=== PATIENT | female | born 1945 | race Caucasian/White ===

== ENCOUNTER 2017-12-05 10:09 | Outpatient (CLI) | payer MEDICARE ==
[2017-12-05 12:09] LABS: Hemoglobin 13.3 g/dL (12.0-16.0); Mean Corpuscular HGB CONC 33.8 g/dL (32.0-36.0); Mean Corpuscular Hemoglobin 30.8 pg (27.0-31.0); Platelet Count 183 thou/uL (130-400); RBC Distribution Width 12.3 % (11.5-14.5); Red Blood Cell (RBC) Count 4.31 mill/uL (4.20-5.40); White Blood Cell (WBC) Count 5.6 thou/uL (4.8-10.8)
[2017-12-05 12:37] LABS: ALT (SGPT) 12 U/L (8-55); AST (SGOT) 17 U/L (5-34); Albumin 4.7 g/dL (3.4-4.8); Alkaline Phosphatase 45 U/L (40-150); Anion Gap 17 mmol/L (10-20); BUN (Urea Nitrogen) 14 mg/dL (9.8-20.1); Bilirubin, Total 0.4 mg/dL (0.2-1.2); Calc. Creatinine Clearance 0 mL/min (70-130); Calcium 10.7 mg/dL (7.8-10.44); Carbon Dioxide 26 mmol/L (23-31); Chloride 105 mmol/L (98-107); Estimated GFR-MDRD 63; Globulin 2.5 g/dL (2.4-3.5); Glucose 95 mg/dL (83-110); Potassium 4.6 mmol/L (3.5-5.1); Protein, Total 7.2 g/dL (6.0-8.3); Sodium 143 mmol/L (136-145)
== END 2017-12-05 10:10 | disposition home or self-care (01) ==
LOC: LABBT 10:09
PROVIDERS: ATTEND Obstetrics & Gynecology
DX: Z01.812 Encounter for preprocedural laboratory examination (principal); R87.613 High grade squamous intraepithelial lesion on cytologic smear of cervix (HGSIL); Z88.5 Allergy status to narcotic agent
CPT/HCPCS: 80053; 85027; 86850; 86900; 86901

== ENCOUNTER 2017-12-06 09:26 | Day surgery (SDC) | payer MEDICARE ==
[2017-12-05 10:54] VITALS: BMI 20.3
[2017-12-06] MEDS ORDERED: Ferric Subsulfate 8 ML BOT ONE (10:10)
[2017-12-06] MEDS ORDERED: Lidocaine 1% w/Epinephrine 1:100K 30 ML VIAL ONE (10:10)
[2017-12-06] MEDS ORDERED: CEFAZOLIN/Water 2 GM/20 ML SYRINGE ONE (10:40)
[2017-12-06] MEDS ORDERED: Fentanyl 100 MCG/2 ML VIAL ONE ×2 (11:37→13:07)
--- NOTE | 2017-12-06 13:37 | OP ---
DATE OF PROCEDURE: 12/06/2017 PREOPERATIVE DIAGNOSES: High grade squamous intraepithelial lesion noted on Pap smear and insufficient in office colposcopy. POSTOPERATIVE DIAGNOSES: High grade squamous intraepithelial lesion noted on Pap smear and insufficient in office colposcopy. PROCEDURE: 1. Vaginal and cervical colposcopy with application of acetic acid and Lugol solution. 2. Cervical conization. 3. Biopsy of a cervical vaginal junction on the anterior and posterior aspect at 12 and 5 o'clock. SURGEON: Mago Webb D.O. COMPLICATIONS: None. ESTIMATED BLOOD LOSS: 25 mL. URINE OUTPUT: 50 mL. IV FLUIDS: 750 mL. ANESTHESIA: General. FINDINGS: Vaginal and cervical atrophy. Approximately 0.25-0.5 cm ulceration at the 5 o'clock position on the posterior aspect of the cervix, a lack of uptake at the 12 and 5 o'clock portion at the cervical vaginal junction, small amount of remaining cervical tissue from history of prior LEEP, cervical stenosis. INDICATIONS FOR THE PROCEDURE: Ms. Drea Louis is a 72-year-old female who presented for a referral due to a high grade squamous intraepithelial lesion Pap smear. The patient underwent in office colposcopy with cervical biopsies and ECC; however the ECC was insufficient due to cervical stenosis and cervical biopsies and one did not survive processing and the other was normal. Due to the inconsistency an exam under anesthesia was recommended with the plan for vaginal and cervical colposcopy with conization. PROCEDURE IN DETAIL: The patient was brought to the operating room and she was placed under general anesthesia. The patient was given Ancef preoperatively for prophylaxis. She was placed in dorsal lithotomy position using Jeff stirrups. An official timeout was performed. A single sided speculum was placed in the vagina. The vagina and cervix were coated with acetic acid and a colposcopy was performed. There was an ulcerated lesion on the posterior aspect of the cervicovaginal junction, which as noted above. Lugol solution was then placed along the cervix and the vagina and there was a lack of uptake at the 12 o'clock and 5 o'clock area at the cervical vaginal junction, not just on the ectocervix. The speculum was removed and a weighted speculum was placed in posterior aspect of the vagina, the anterior aspect of vagina was retracted using a right angle retractor. The cervix was grasped at the 12 o'clock position. The cervix was sequentially injected using lidocaine with epinephrine. Two stay sutures were placed at 3 and 9 o'clock position. The conization was performed in the circumferential fashion. It was a small cone specimen due to small amount of remaining cervical tissue due to prior LEEP and due to atrophy. This was marked at the 12 o'clock position. The cervical cone specimen did not completely incorporate the anterior and posterior areas with the lack of uptake of Lugol's due to their location of the cervical vaginal junction and past the portion of the ectocervix. Therefore, these areas were grasped using pickups and then biopsied superficially using Monreal scissors along the cervicovaginal junction. These were placed in a separate pathology container. The bed of the cone that was centrally located was cauterized using ball cautery. The areas where the other biopsies were performed were reapproximated using 2-0 chromic due to the near proximity of the bladder and then the posterior cul-de-sac. The area along the posterior portion was run using a 2-0 chromic as well just to achieve hemostasis. Monsel's was then placed along the side and hemostasis was achieved. The patient was extubated without difficulty. All counts were correct x2. There were no complications. MTDD
[2017-12-06] MEDS ORDERED: HYDROcodone/Acetaminophen 5/325 mg Tablet ONE (15:30)
[2017-12-06] MEDS ORDERED: PHENYLEPHRINE-NS 100 MCG/ML 10 ML SYRINGE ONE (18:02)
[2017-12-06] MEDS ORDERED: Lidocaine 1% PF 5 ML VIAL ONE (18:02)
[2017-12-06] MEDS ORDERED: Dexamethasone 20 MG/5 ML VIAL ONE (18:02)
[2017-12-06] MEDS ORDERED: Ondansetron HCl/PF 4 MG/2 ML Vial ONE (18:02)
[2017-12-06] MEDS ORDERED: PROPOFOL 200 MG/20 ML VIAL ONE (18:02)
[2017-12-06] MEDS ORDERED: Glycopyrrolate 0.2 MG/ML 5 ML SYRINGE ONE (18:02)
== END 2017-12-06 16:18 | disposition home or self-care (01) ==
LOC: SDC 09:26
PROVIDERS: ATTEND Obstetrics & Gynecology
PROC: 0UBC7ZX Excision of Cervix, Via Natural or Artificial Opening, Diagnostic (ICD-10-PCS; principal; 2017-12-06)
PROC: 0UBC8ZX Excision of Cervix, Via Natural or Artificial Opening Endoscopic, Diagnostic (ICD-10-PCS; 2017-12-06)
DX: N72 Inflammatory disease of cervix uteri (principal); N88.2 Stricture and stenosis of cervix uteri; E11.9 Type 2 diabetes mellitus without complications; I10 Essential (primary) hypertension; R87.613 High grade squamous intraepithelial lesion on cytologic smear of cervix (HGSIL); Z88.5 Allergy status to narcotic agent; Z79.84 Long term (current) use of oral hypoglycemic drugs; Z79.83 Long term (current) use of bisphosphonates; Z79.899 Other long term (current) drug therapy; Z87.891 Personal history of nicotine dependence
CPT/HCPCS: 88305; 88307; 96374; J1100; J2001; J2405; J2704; J3010

== ENCOUNTER 2018-01-16 10:10 | Outpatient (CLI) | payer MEDICARE | END 2018-01-16 10:11 | disposition home or self-care (01) | LOC: BICMAMMO 10:10 | PROVIDERS: ATTEND Family Medicine | DX: C50.411 Malignant neoplasm of upper-outer quadrant of right female breast (principal); R92.1 Mammographic calcification found on diagnostic imaging of breast | CPT/HCPCS: 77066; G0279 ==

== ENCOUNTER 2018-01-28 12:50 | Outpatient (CLI) | payer MEDICARE ==
--- NOTE | 2018-01-28 14:58 | ULT ---
ULTRASOUND WITH DOPPLER DUPLEX VENOUS LOWER EXTREMITY LEFT: HISTORY: 72-year-old female with left lower extremity pain. TECHNIQUE: Color flow Doppler, spectral waveform analysis of pulsed Doppler, and mejias-scale imaging with ugo stephanie and augmentation, were used to evaluate the left common femoral, femoral, popliteal, posterior t ibial, and superficial femoral, veins; and the proximal portions of the profunda femoral and greater saphenous, veins. FINDINGS: There is normal compressibility, demonstration of blood flow by color Doppler and pulsed Doppler, and response to augmentation, in all interrogated veins. IMPRESSION: Negative. No deep vein thrombosis in the left lower extremity. ever POS: PRERNA
== END 2018-01-28 12:51 | disposition home or self-care (01) ==
LOC: ULT 12:50
PROVIDERS: ATTEND Family Medicine
DX: R22.42 Localized swelling, mass and lump, left lower limb (principal)
CPT/HCPCS: 36415; 82553; 83036; 84484

== ENCOUNTER 2018-08-16 20:54 | Observation (INO) | payer MEDICARE ==
[2018-08-17] MEDS ORDERED: Acetaminophen 325 MG TAB PO PRN (01:19)
[2018-08-17 01:51] VITALS: BMI 19.5
[2018-08-17] MEDS ORDERED: Dextrose 5% in Water 1,000 ML IV PRN (09:15)
[2018-08-17] MEDS ORDERED: HumaLOG 300 UNITS/3 ML VIAL SC PRN (09:15)
[2018-08-17] MEDS ORDERED: Dextrose 50% Abboject 50 ML SYRINGE SLOW IVP PRN (09:15)
[2018-08-17 09:42] LABS: #Eosinphils 0.1 thou/uL (0.0-0.7); #Lymphocytes 1.3 thou/uL (1.20-3.40); #Monocytes 0.3 thou/uL (0.11-0.59); #Neutrophils 2.5 thou/uL (1.40-6.50); %Basophils 0.3 % (0.0-1.0); %Eosinophils 2.8 % (0.0-10.0); %Lymphocytes 29.7 % (21.0-51.0); %Neutrophils 60.2 % (42.0-75.0); Hemoglobin 11.3 g/dL (12.0-16.0); Mean Corpuscular HGB CONC 33.4 g/dL (32.0-36.0); Mean Corpuscular Hemoglobin 30.5 pg (27.0-31.0); Mean Corpuscular Volume 91.4 fL (78.0-98.0); Mean Platelet Volume 7.4 fL (7.4-10.4); Platelet Count 161 thou/uL (130-400); RBC Distribution Width 12.6 % (11.5-14.5); Red Blood Cell (RBC) Count 3.69 mill/uL (4.20-5.40); White Blood Cell (WBC) Count 4.2 thou/uL (4.8-10.8)
[2018-08-17 10:04] LABS: ALT (SGPT) 10 U/L (8-55); AST (SGOT) 11 U/L (5-34); Albumin 3.7 g/dL (3.4-4.8); Alkaline Phosphatase 31 U/L (40-150); Anion Gap 12 mmol/L (10-20); BUN (Urea Nitrogen) 19 mg/dL (9.8-20.1); Bilirubin, Total 0.5 mg/dL (0.2-1.2); Calc. Creatinine Clearance 36 mL/min (70-130); Calcium 9.2 mg/dL (7.8-10.44); Carbon Dioxide 25 mmol/L (23-31); Chloride 105 mmol/L (98-107); Estimated GFR-MDRD 51; Globulin 2.1 g/dL (2.4-3.5); Glucose 213 mg/dL (83-110); Potassium 4.3 mmol/L (3.5-5.1); Protein, Total 5.8 g/dL (6.0-8.3); Sodium 138 mmol/L (136-145)
--- NOTE | 2018-08-17 11:29 | MRI ---
NONCONTRAST MRI BRAIN: Date: 08/17/18 HISTORY: Left-sided weakness. Left facial sensation changes and left leg heaviness. COMPARISON: 10/30/13. FINDINGS: There are increased punctate and patchy areas of increased FLAIR and T2-weighted signal intensity see n within the periventricular and subcortical white matter, as well as involving the steffanie bilaterally, which are overall nonspecific but likely reflective of chronic small vessel ischemic changes, which have mildly progressed from the prior study in 2013. There is no evidence of an acute infarction. Sig nal abnormality in the right aspect of the brain stem on the T2-weighted images are most likely artif actual and secondary to pulsation artifact as normal signal intensity is demonstrated in this region on FLAIR and gradient echo sequences, as well as the ACD maps. The septum pellucidum and third ventricle are in the midline. There is mild cerebral and cerebellar v olume loss. The ventricular system is normal in size, shape, and position for the degree of sulcal at rophy. The left vertebral artery flow-void is dominant compared to the right vertebral artery flow-void. Lisa ropriate flow-voids are demonstrated at the base of the brain. There is absence of the belkofski lens on the right. Paranasal sinuses and skull base have a normal MRI appearance. IMPRESSION: 1. No acute intracranial abnormalities demonstrated. 2. Findings likely attributable to moderate chronic small vessel ischemic changes, which have mildly progressed from the prior exam in 2013. POS: PRERNA
--- NOTE | 2018-08-17 13:20 | HP ---
PRIMARY CARE PROVIDER: Argenis Infante MD CHIEF COMPLAINT: Chest pain and TIA symptoms. HISTORY OF PRESENT ILLNESS: The patient is a 73-year-old female, who reports that she started having midsternal chest pain that radiated and shortness of breath started several days ago. Reports Saturday, she went to the movies and started feeling weak. Reports that she had some numbness and tingling on her left side. Reports that her left leg felt really heavy. She reports that she had gone to [place] for evaluation. The patient had a CTA of the head in [place]. No CT evidence of acute intracranial process. Atherosclerotic vascular disease without high-grade stenosis, occlusion, or abscess. The patient had 3 troponins, which were undetectable. Based on symptoms, the patient was a transfer to [facility] and ultimately admitted to the observation unit for further management. Of note, she reports that she sees Dr. Li and has had a stress test in the last couple of months. On exam this morning, she did have some mild weakness, 4/5 strength decreased on the left leg. Otherwise, neuro exam was normal. PAST MEDICAL HISTORY: Includes diabetes type 2, GERD, hyperlipidemia, hypertension, and she has had a history of breast cancer. PAST SURGICAL HISTORY: Appendectomy, left heel spur, biopsy of the left breast, tubal ligation, skin cancers removed from her nose, lumpectomy right breast, and cataract surgery, right eye. PSYCHIATRIC HISTORY: None. SOCIAL HISTORY: Denies any alcohol or drugs. No smoking history. FAMILY HISTORY: Denies family history of any cardiac issues or strokes. REVIEW OF SYSTEMS: GENERAL: Denies chills or fever. EYES: Denies any eye changes, eye pain. ENT: Denies sore throat or rhinorrhea. CARDIOVASCULAR: Does report chest pain with radiation up to her neck. RESPIRATORY: Denies cough. Reports some mild shortness of breath during the chest pain that has since resolved. GASTROINTESTINAL: Denies any abdominal pain, nausea, vomiting, or constipation. MUSCULOSKELETAL: Reports left leg feels heavy. SKIN: No rashes. NEUROLOGIC: Denies confusion or dizziness. Does report some focal weakness on the left leg. Reports some sensory changes to the left. Decreased sensation. Denies speech changes. ENDOCRINE: Shows negative review of systems. PSYCH: Negative review of systems. All other systems reviewed and negative unless mentioned in HPI. PHYSICAL EXAMINATION: VITAL SIGNS: Temperature 97.5, pulse 63, respirations 18, pulse ox is 92% on room air, and blood pressure 114/55. CONSTITUTIONAL: The patient is alert and oriented to person, place, and time, is in no apparent distress. HEENT: Head is atraumatic and normocephalic. Eyes, pupils are equally round and reactive to light. Eyelids are normal to inspection. ENT; mouth exam is normal. Mucous membranes are moist. NECK: Normal range of motion. Trachea is midline. RESPIRATORY: Chest movement is symmetrical. Breath sounds are clear. CARDIOVASCULAR: Regular heart rate and rhythm. Heart sounds are normal. ABDOMEN: Nontender. Bowel sounds are heard. BACK: Normal range of motion. No CVA tenderness is noted. EXTREMITIES: Upper extremity, motor strength is normal. Sensation is intact. Radial pulses equal bilaterally. Lower extremity, inspection is normal. Range of motion is normal. Motor strength is 4/5 on the left. Sensation is decreased. Pedal pulses equal bilaterally. NEURO: Negative pronator drift and negative alternate drift. Normal [id number]. The patient is oriented to person, place, and time. Speech is normal. SKIN: Warm, dry, and normal color. PSYCH: Normal affect. LABORATORY DATA: EKG interpretation; normal sinus rhythm, beats per minute 60, ST segments normal, T-waves normal, and axis is normal. White blood cell count is 4.2, hemoglobin is 11.3, hematocrit 33.8, and platelet count is 161. Sodium is 138, potassium 4.3, chloride 105, gap is 12, BUN is 19, creatinine is 1.05, estimated GFR is 51, glucose is 213, and calcium 9.2. Liver enzymes are unremarkable. Troponin x2 are undetectable. ALLERGIES: TO CODEINE. HOME MEDICATIONS: Include; 1. Alendronate 35 mg 1 tablet p.o. q.7 days. 2. Vitamin D3 of 5000 units p.o. daily. 3. Lisinopril 20 mg q.a.m. 4. Lovastatin 10 mg p.o. daily. 5. Metformin 1000 mg p.o. b.i.d. 6. Pantoprazole 40 mg 1 tablet p.o. daily. 7. Tamoxifen 120 mg 1 tablet p.o. daily. 8. Coenzyme q.30 mg p.o. daily. 9. Multivitamin 1 capsule p.o. q.a.m. PLAN AND ASSESSMENT: 1. Cerebrovascular accident, rule out the patient has some residual left-sided weakness, sensation difference. We will obtain an MRI and echocardiogram. The patient already had a CTA of the neck and head, which was negative. We will ask the Stroke team to help evaluate PT/OT. 2. Chest pain. The patient sees Dr. Li as an outpatient. Reports that she has had a recent stress test with ongoing chest pain. We will ask Cardiology to consult. Troponins x2 were negative. No apparent EKG changes. 3. Hypertension. We will continue home medications. We will add p.r.n. medications if needed. 4. Diabetes. We will continue home medication. We will add p.r.n. sliding scale control as needed. We will check blood sugars before meals and at bedtime. 5. Hyperlipidemia. We will check lipids. Continue statin. 6. Gastrointestinal and deep venous thrombosis prophylaxis will be started. 7. Hospital course will be dependent on clinical findings. Job ID: [id number]
--- NOTE | 2018-08-17 13:55 | CON ---
DATE OF CONSULTATION: 08/17/2018 INDICATION FOR CONSULTATION: A 73-year-old female with chest pain. HISTORY OF PRESENT ILLNESS: This is a very pleasant 73-year-old female who was seen by Dr. Li in the past and most recently in March of 2018, had stress testing, which showed no evidence of ischemia. At that time, she was having hypertension and hypertension has been under relatively good control, but now it continues to fluctuate. She described having some chest discomfort for the last couple of days, which is just an aching or heaviness type pain and a couple of episodes had shooting sharp pains to the left arm, which lasts only for seconds. She denied any heaviness in the arm. She then had what appeared to be a small TIA. She presented to the emergency room and was evaluated for the TIA. She also complained of some chest discomfort. The MRI or CT scan does not show any acute changes. She probably has some small-vessel disease according to the studies. At this time, she still says if she gets up and moves around, she may have some mild chest discomfort, but she also says that she also has some mild numbness still in the left leg, which is only minimal and she has occasionally some tingling in the left arm. The left face which she was numb for also now is back to normal. She cannot really describe the pain, the chest discomfort as being heaviness or soreness, but just maybe some discomfort. Her cardiac enzymes are unremarkable. The EKG is also normal. PAST MEDICAL HISTORY: Significant for hypertension, hyperlipidemia. She has had a history of gastroesophageal reflux disease. She has had a history of diabetes, hypertension. She has had breast biopsy and a lumpectomy of the right breast. She has had skin cancer removed from her nose. She has had tubal ligation. She has had some left heel surgery and appendectomy. ALLERGIES: ALLERGIC TO CODEINE. MEDICATIONS: At home include: 1. Metformin 1000 mg b.i.d. 2. Lovastatin 10 mg daily. 3. Vitamin D3. 4. CoQ10. 5. Alendronate. 6. Tamoxifen 20 mg once a day. 7. Protonix once a day. 8. Lisinopril 20 mg a day. 9. Vitamins. REVIEW OF SYSTEMS: A 12-point review of systems is relatively unremarkable except as noted in the history of present illness. SOCIAL HISTORY: She has children who are alive and well. She has no alcohol or tobacco abuse. FAMILY HISTORY: Noncontributory. PHYSICAL EXAMINATION: GENERAL: Reveals a well-developed, well-nourished female, who is in no acute distress at this time. VITAL SIGNS: Blood pressure is 154/86, early was 90/40, heart rate 66 and regular, respiratory rate is 18. She is afebrile, O2 saturation is 98%. HEENT: Shows head to be normocephalic and atraumatic. Carotid pulses are present. There were no bruits noted. There is no JVD. The thyroid is not enlarged. CHEST: Clear to auscultation. There were no rales, rhonchi, or wheezing. CARDIOVASCULAR: Reveals a regular rate and rhythm with normal S1, S2. I cannot hear an S3 nor an S4. There were no significant murmurs, heaves, thrills, bruits, or rubs. ABDOMINAL: Soft, flat, nontender with positive bowel sounds. EXTREMITIES: Show no clubbing, cyanosis, or edema. Pedal pulses are present. There is no edema. NEUROLOGIC: The patient appears to be intact. I cannot elicit any significant gross focal motor deficits. I could not elicit any weakness. She appears to be normal. LABORATORY AND IMAGING DATA: EKG shows normal sinus rhythm, no acute changes. Laboratory data shows negative cardiac enzymes. BUN of 19 with a creatinine of 1.05, potassium 4.3. Hemoglobin 11.3, WBC of 4.2. IMPRESSION: 1. A 73-year-old female with hypertension and transient ischemic attack. This seems to be resolving. 2. History of chest pain, which is suddenly somewhat atypical. She had a recent stress test, which showed no evidence of ischemia. She has negative enzymes and normal EKG. The pain was persistent for 2 days. I did explain to her that should she have chest pain for 2 days and no cardiac enzyme elevation, no EKG changes, highly unlikely that this is cardiac in nature, especially in view of having a very recent normal stress test. From my perspective, the patient is able to ambulate and does not have any significant EKG changes or chest pain, she could be discharged home and can follow up with Dr. Li in the next 1 to 2 weeks. 3. History of hypertension. We will need to ensure that her blood pressure medications were adjusted in order to lower the blood pressure. We could start her on Norvasc to help with the blood pressure, but at times, blood pressure was on the low side, should she be very careful, I will start her on a small dose of 2.5 mg a day. 4. History of diabetes. This will be dealt with by the primary care service. 5. History of hypercholesterolemia. She will continue on the lovastatin. Job ID: [id number]
[2018-08-17] MEDS: metFORMIN 500 MG TAB PO SCH (17:12)
[2018-08-17] MEDS ORDERED: Simvastatin 5 MG TAB PO SCH (21:00)
[2018-08-18 05:24] LABS: #Eosinphils 0.2 thou/uL (0.0-0.7); #Lymphocytes 1.8 thou/uL (1.20-3.40); #Monocytes 0.4 thou/uL (0.11-0.59); #Neutrophils 2.8 thou/uL (1.40-6.50); %Basophils 0.1 % (0.0-1.0); %Eosinophils 3.6 % (0.0-10.0); %Lymphocytes 34.2 % (21.0-51.0); %Monocytes 7.8 % (0.0-10.0); %Neutrophils 54.3 % (42.0-75.0); Hemoglobin 11.5 g/dL (12.0-16.0); Mean Corpuscular HGB CONC 32.9 g/dL (32.0-36.0); Mean Corpuscular Hemoglobin 30.6 pg (27.0-31.0); Mean Corpuscular Volume 92.9 fL (78.0-98.0); Mean Platelet Volume 7.6 fL (7.4-10.4); Platelet Count 165 thou/uL (130-400); RBC Distribution Width 12.6 % (11.5-14.5); Red Blood Cell (RBC) Count 3.76 mill/uL (4.20-5.40); White Blood Cell (WBC) Count 5.2 thou/uL (4.8-10.8)
[2018-08-18 05:50] LABS: ALT (SGPT) 9 U/L (8-55); AST (SGOT) 11 U/L (5-34); Albumin 3.6 g/dL (3.4-4.8); Alkaline Phosphatase 36 U/L (40-150); Anion Gap 14 mmol/L (10-20); BUN (Urea Nitrogen) 17 mg/dL (9.8-20.1); Bilirubin, Total 0.3 mg/dL (0.2-1.2); Calc. Creatinine Clearance 38 mL/min (70-130); Calcium 9.5 mg/dL (7.8-10.44); Carbon Dioxide 23 mmol/L (23-31); Cardiac Risk 2.9 (Less than 4.5); Chloride 105 mmol/L (98-107); Cholesterol 139 mg/dl (< 200 Desired); Estimated GFR-MDRD 55; Globulin 2.1 g/dL (2.4-3.5); Glucose 176 mg/dL (83-110); HDL Cholesterol 48 mg/dL (>60 Neg Risk); LDL Cholesterol, Calculated 62 mg/dL; Potassium 3.9 mmol/L (3.5-5.1); Protein, Total 5.7 g/dL (6.0-8.3); Sodium 138 mmol/L (136-145); Triglycerides 143 mg/dL (Less than 150)
[2018-08-18] MEDS: metFORMIN 500 MG TAB PO SCH (07:24)
[2018-08-18] MEDS ORDERED: Ubidecarenone 50 MG CAP PO SCH (09:00)
[2018-08-18] MEDS ORDERED: Folic Acid/Vit B Comp W-C PO SCH (09:00)
[2018-08-18] MEDS ORDERED: Lisinopril 20 MG TAB PO SCH (09:00)
[2018-08-18] MEDS ORDERED: Ketorolac Tromethamine 30 MG/ML VIAL IVP SCH (11:30)
[2018-08-18 11:48] VITALS: BP 109/54; TEMP 98.3
[2018-08-18] MEDS ORDERED: Aspirin 325 MG TAB ONE (12:29)
[2018-08-18] MEDS ORDERED: Aspirin 325 MG TAB PO SCH (13:15)
--- NOTE | 2018-08-18 18:58 | DIS ---
DATE OF ADMISSION: 08/16/2018 DATE OF DISCHARGE: 08/18/2018 DISCHARGE DIAGNOSES: 1. Transient ischemic attack. 2. Hypertension. 3. Atypical chest pain. 4. Diabetes mellitus. 5. Hypercholesterolemia. CONSULTING PHYSICIAN: Dr. Bojorquez, Cardiology. HOSPITAL COURSE: Ms. Louis is a pleasant 73-year-old woman, who was admitted after presenting with complaints of chest pain and left facial numbness with heaviness in the left lower extremity. She was transferred here from [place], where she underwent a CT of the head that showed no evidence of acute intracranial process. Troponins done there were negative and she was admitted here and I have seen her for further investigation and management. She has undergone a CTA of the head and neck showing no acute changes. She was noted to have atherosclerotic vascular disease without high-grade stenosis, occlusion, or abscess formation. An MRI of the brain was also done, which demonstrated no acute intracranial abnormalities. There were findings attributable to moderate chronic small vessel ischemic changes with mild progression compared to previous exam done in 2013. The patient had laboratory studies done throughout her stay, which showed normal full blood count. Electrolytes were unremarkable and within normal range. LFTs also unremarkable. She underwent a lipid panel showing triglycerides were 143, cholesterol 139, LDL 62, HDL 48 with a heart disease risk ratio of 2.9. Her TSH now is 1.9342. The patient has had recent stress test with Dr. Li in the last couple of months. Therefore, only an echocardiogram was requested and Cardiology was consulted. She was seen by Dr. Bojorquez. The patient was cleared from a cardiac standpoint by Dr. Bojorquez. Given no elevation in cardiac enzymes, normal ECG with recommendations to follow up with Dr. Li in the next 1 to 2 weeks. She was seen by Dr. Li this morning, so again cleared her from a cardiac standpoint and recommended to continue on aspirin daily. He plans to see her in the next 2 to 3 weeks. With regard to her blood pressure, she has had fairly well controlled blood pressure during her hospital stay with no changes made to her usual medications given that her blood pressure was even on the lower side at times. She has tolerated oral intake without any difficulty. REVIEW OF SYSTEMS: On day of discharge, the patient states she is no longer experiencing any chest pain, numbness, or tingling to her face or extremities. States she feels back to baseline and eager to go home. Denies having any headaches or dizziness. Denies any chest pain, palpitations, or shortness of breath. No abdominal pain or cramping. No nausea or vomiting. She has been moving her bowels without difficulties. No urinary symptoms. Denies having any fevers or chills. All other review of systems are negative. PHYSICAL EXAMINATION: GENERAL: The patient appears well developed, well nourished, is in no acute distress. VITAL SIGNS: Temperature 97.5, pulse 63, respirations 18, O2 saturation 92% on room air, blood pressure 114/55. HEENT: Normocephalic, atraumatic. Pupils are equal, reactive to light. Sclerae are without icterus. Oropharynx is clear. NECK: Supple. No lymphadenopathy. LUNGS: Clear to auscultation bilaterally without wheezes, rales, or rhonchi. CARDIAC: Regular rate and rhythm without audible murmurs, rubs, or gallops. ABDOMEN: Soft, nontender. Normoactive bowel sounds present. EXTREMITIES: No clubbing, cyanosis, or edema. NEUROLOGIC: The patient is alert and oriented x3. Facial movements normal. Facial sensation intact. Power 5/5 in all limbs with no focal deficits. SKIN: Without rash or jaundice. LABORATORY DATA: White blood count 5.2, hemoglobin 11.5, hematocrit 34.9, platelets 165. Sodium 138, potassium 3.9, chloride 105, carbon dioxide 23, BUN 17, creatinine 0.98, GFR 55, glucose 152, total bilirubin 0.3, AST 11, ALT 9, alkaline phosphatase 36. Lipid panel as above. IMAGING DATA: As mentioned above in HPI. PROCEDURES: None. DISCHARGE MEDICATIONS: The patient advised to resume home medications. New medication prescribed, baby aspirin 81 mg p.o. daily. CONDITION: Stable. ACTIVITY: As tolerated. DIET: Heart healthy/diabetic diet. FOLLOWUP: 1. The patient will follow up with Dr. Li in 2 to 3 weeks as he has recommended. 2. She will follow up with her primary care physician within one week. DISPOSITION: The patient cleared for discharge home today on August 18, 2018. The patient's case was discussed with Dr. Agarwal, who agrees with the plan of care as described above. Job ID: [id number]
[2018-08-19] MEDS ORDERED: Aspirin 325 mg Enteric Coated Tablet PO SCH (09:00)
== END 2018-08-18 13:46 | disposition home or self-care (01) ==
LOC: ERS 20:54 → 2SE 23:23
PROVIDERS: ADMIT Hospitalist; ATTEND Hospitalist
DX: G45.9 Transient cerebral ischemic attack, unspecified (principal); R07.89 Other chest pain; I10 Essential (primary) hypertension; E78.00 Pure hypercholesterolemia, unspecified; E11.9 Type 2 diabetes mellitus without complications; K21.9 Gastro-esophageal reflux disease without esophagitis; Z90.49 Acquired absence of other specified parts of digestive tract; Z98.51 Tubal ligation status; Z88.5 Allergy status to narcotic agent; Z85.3 Personal history of malignant neoplasm of breast; Z85.828 Personal history of other malignant neoplasm of skin; Z79.84 Long term (current) use of oral hypoglycemic drugs; Z79.82 Long term (current) use of aspirin; Z79.899 Other long term (current) drug therapy; Z98.890 Other specified postprocedural states
CPT/HCPCS: 70551; 80053; 80061; 82962 ×2; 84484 ×2; 85025; 93005; 93306; 96374; 97139 ×3; 99285; G0378 ×2; 36415; 36416; 84443; J1885

== ENCOUNTER 2019-02-12 08:07 | Outpatient (CLI) | payer MEDICARE ==
--- NOTE | 2019-02-17 06:44 | MMO ---
Bilateral MAMMO Bilat Diag DDI+KYUNG. CLINICAL HISTORY: Patient is 73 years old and is seen for diagnostic exam. The patient has the following family history of breast cancer: maternal aunt. The patient has a history of Ultrasound Guided Core Biopsy procedure revealed invasive ductal right breast carcinoma in September,. The patient has a history of right Lumpectomy in Oct, 2014 - malignant, right Ultrasound Guided Core Biopsy in September, - malignant, left Excisional Biopsy in 1993 - benign and right Excisional Biopsy in 1988 - benign. VIEWS: The views performed were: bilateral craniocaudal with tomosynthesis; bilateral mediolateral oblique with tomosynthesis; and bilateral mediolateral with tomosynthesis. FILMS COMPARED: The present examination has been compared to prior imaging studies performed at [facility] on 10/05/2014, 11/30/2015, 12/11/2016 and 01/16/2018. MAMMOGRAM FINDINGS: There are scattered fibroglandular densities. Finding 1: There are stable post operative changes seen in the right breast. Finding 2: There are benign appearing calcifications seen in both breasts. There are no suspicious masses, suspicious calcifications, or new areas of architectural distortion. IMPRESSION: FINDING 1: STABLE POST OPERATIVE CHANGES IN THE RIGHT BREAST ARE BENIGN. FINDING 2: CALCIFICATIONS IN BOTH BREASTS ARE BENIGN. THE FINDINGS AND RECOMMENDATIONS WERE DISCUSSED WITH THE PATIENT PRIOR TO HER LEAVING THE CENTER. A ROUTINE FOLLOW-UP MAMMOGRAM IN 1 YEAR IS RECOMMENDED. THE RESULTS OF THIS EXAM WERE SENT TO THE PATIENT. ACR BI-RADS Category 2 - Benign finding MAMMOGRAPHY NOTE: 1. A negative mammogram report should not delay a biopsy if a dominant of clinically suspicious mass is present. 2. Approximately 10% to 15% of breast cancers are not detected by mammography. 3. Adenosis and dense breasts may obscure an underlying neoplasm. Reported by: JR MURPHY MD Electonically Signed: [id number]
== END 2019-02-12 08:08 | disposition home or self-care (01) ==
LOC: BICMAMMO 08:07
PROVIDERS: ATTEND Internal Medicine Hematology & Oncology
DX: Z08 Encounter for follow-up examination after completed treatment for malignant neoplasm (principal); R92.1 Mammographic calcification found on diagnostic imaging of breast; Z98.890 Other specified postprocedural states; Z85.3 Personal history of malignant neoplasm of breast; Z80.3 Family history of malignant neoplasm of breast
CPT/HCPCS: 77066; G0279

== ENCOUNTER 2019-04-07 09:13 | Outpatient (CLI) | payer MEDICARE ==
--- NOTE | 2019-04-09 23:07 | EKG ---
Test Reason : Blood Pressure : / mmHG Vent. Rate : 065 BPM Atrial Rate : 065 BPM P-R Int : 152 ms QRS Dur : 070 ms QT Int : 406 ms P-R-T Axes : 039 052 061 degrees QTc Int : 422 ms Poor data quality, interpretation may be adversely affected Normal sinus rhythm Normal ECG When compared with ECG of 16-AUG-2018 21:03, No significant change was found Confirmed by Daphne WILSON ([id number]) on 04/09/2019 11:07:32 PM Referred By: HALLIE Confirmed By:Daphne WILSON
== END 2019-04-07 09:14 | disposition home or self-care (01) ==
LOC: LABBT 09:13
PROVIDERS: ATTEND Obstetrics & Gynecology
DX: Z01.818 Encounter for other preprocedural examination (principal)
CPT/HCPCS: 93005; 93010

== ENCOUNTER 2019-04-14 05:46 | Day surgery (SDC) | payer MEDICARE ==
[2019-04-07 09:33] VITALS: BMI 19.1
[2019-04-07 10:53] LABS: Hemoglobin 12.8 g/dL (12.0-16.0); Mean Corpuscular HGB CONC 33.3 g/dL (32.0-36.0); Mean Corpuscular Hemoglobin 29.6 pg (27.0-31.0); Mean Corpuscular Volume 89.1 fL (78.0-98.0); Mean Platelet Volume 7.6 fL (7.4-10.4); Platelet Count 177 thou/uL (130-400); RBC Distribution Width 12.4 % (11.5-14.5); Red Blood Cell (RBC) Count 4.31 mill/uL (4.20-5.40); White Blood Cell (WBC) Count 5.6 thou/uL (4.8-10.8)
[2019-04-07 11:14] LABS: Anion Gap 14 mmol/L (10-20); BUN (Urea Nitrogen) 14 mg/dL (9.8-20.1); Calc. Creatinine Clearance 0 mL/min (70-130); Calcium 9.7 mg/dL (7.8-10.44); Carbon Dioxide 25 mmol/L (23-31); Chloride 105 mmol/L (98-107); Estimated GFR-MDRD 59; Glucose 92 mg/dL (83-110); Sodium 140 mmol/L (136-145)
[2019-04-14] MEDS ORDERED: Gabapentin 300 MG CAP ONE (06:07)
[2019-04-14] MEDS ORDERED: CeleCOXIB 100 MG CAP ONE (06:07)
[2019-04-14] MEDS ORDERED: Famotidine/PF 20 mg/2ml Vial ONE (06:07)
[2019-04-14] MEDS ORDERED: Lidocaine 2% Jelly 5 ML TUBE ONE (06:13)
[2019-04-14] MEDS ORDERED: Fentanyl 100 MCG/2 ML VIAL ONE ×2 (06:13→11:53)
[2019-04-14] MEDS ORDERED: Lidocaine 1% w/Epinephrine 1:100K 20 ML VIAL ONE (06:56)
[2019-04-14] MEDS ORDERED: Bupivacaine HCl 0.5%/Epinephrine 1:200,000/PF 30 ml Vial ONE (06:56)
[2019-04-14] MEDS ORDERED: Furosemide 20 MG/2 ML VIAL ONE (10:31)
[2019-04-14] MEDS ORDERED: Promethazine HCl 25 MG/ML VIAL SLOW IVP PRN (11:46)
[2019-04-14] MEDS ORDERED: Ondansetron HCl/PF 4 MG/2 ML Vial IVP PRN (11:46)
[2019-04-14] MEDS ORDERED: Promethazine HCl 25 MG/ML VIAL IM PRN ×2 (11:46→13:56)
[2019-04-14] MEDS ORDERED: Acetaminophen 325 MG TAB PO PRN (13:56)
[2019-04-14] MEDS ORDERED: Ondansetron PF 4 MG/2 ML Vial IVP PRN (13:56)
[2019-04-14] MEDS ORDERED: Simethicone Chewable 80 MG TAB PO PRN (13:56)
[2019-04-14] MEDS ORDERED: diphenhydrAMINE 25 MG CAP PO PRN (13:56)
[2019-04-14] MEDS ORDERED: Bisacodyl 10 MG SUPP PR PRN (13:56)
[2019-04-14] MEDS ORDERED: traMADol HCl 50 MG TAB PO PRN ×2 (13:56)
[2019-04-14] MEDS ORDERED: HYDROcodone/Acetaminophen 5/325 mg Tablet PO PRN (13:56)
[2019-04-14] MEDS ORDERED: Ketorolac Tromethamine 30 MG/ML VIAL ONE (14:09)
[2019-04-14] MEDS ORDERED: Ondansetron PF 4 MG/2 ML Vial ONE (14:29)
[2019-04-14] MEDS: Ketorolac Tromethamine 30 MG/ML VIAL IVP SCH ×2 (18:07→20:04)
[2019-04-14] MEDS ORDERED: Amlodipine 10 MG TAB PO PRN (18:37)
[2019-04-14] MEDS: Lactated Ringer's 1,000 ML IV SCH ×2 (20:18→23:18)
[2019-04-14] MEDS ORDERED: Simvastatin 5 MG TAB PO SCH (21:00)
[2019-04-14] MEDS: HYDROcodone/Acetaminophen 5/325 mg Tablet PO PRN (23:17)
[2019-04-15] MEDS: Ketorolac Tromethamine 30 MG/ML VIAL IVP SCH (01:49)
[2019-04-15 06:05] LABS: Hemoglobin 9.7 g/dL (12.0-16.0); Mean Corpuscular HGB CONC 34.7 g/dL (32.0-36.0); Mean Corpuscular Hemoglobin 30.8 pg (27.0-31.0); Mean Corpuscular Volume 88.9 fL (78.0-98.0); Mean Platelet Volume 7.3 fL (7.4-10.4); Platelet Count 132 thou/uL (130-400); RBC Distribution Width 12.2 % (11.5-14.5); Red Blood Cell (RBC) Count 3.16 mill/uL (4.20-5.40); White Blood Cell (WBC) Count 6.2 thou/uL (4.8-10.8)
[2019-04-15] MEDS: Lactated Ringer's 1,000 ML IV SCH ×2 (06:12→17:18)
[2019-04-15 06:22] LABS: Anion Gap 15 mmol/L (10-20); BUN (Urea Nitrogen) 11 mg/dL (9.8-20.1); Calc. Creatinine Clearance 45 mL/min (70-130); Calcium 7.9 mg/dL (7.8-10.44); Carbon Dioxide 21 mmol/L (23-31); Chloride 105 mmol/L (98-107); Estimated GFR-MDRD 66; Glucose 153 mg/dL (83-110); Potassium 3.6 mmol/L (3.5-5.1); Sodium 137 mmol/L (136-145)
[2019-04-15] MEDS ORDERED: Ibuprofen 800 MG TAB PO SCH (08:00)
[2019-04-15] MEDS: metFORMIN 500 MG TAB PO SCH ×2 (08:41→17:17)
[2019-04-15] MEDS: HYDROcodone/Acetaminophen 5/325 mg Tablet PO PRN ×2 (08:43→09:20)
[2019-04-15] MEDS ORDERED: Lisinopril 20 MG TAB PO SCH (09:00)
--- NOTE | 2019-04-15 09:02 | OP ---
DATE OF PROCEDURE: 04/14/2019 PREOPERATIVE DIAGNOSES: 1. Endometrial fluid collection after a history of a cervical conization. 2. Pelvic pain. 3. Apical vaginal prolapse. 4. Stress urinary incontinence. POSTOPERATIVE DIAGNOSES: 1. Endometrial fluid collection after a history of a cervical conization. 2. Pelvic pain. 3. Apical vaginal prolapse. 4. Stress urinary incontinence. PROCEDURES PERFORMED: 1. Robotic-assisted total laparoscopic hysterectomy with bilateral salpingo-oophorectomy. 2. Laparoscopic uterosacral ligament suspension. 3. Advantage Fit mid-urethral sling. 4. Cystoscopy. IRONER SOCK: Codi Mccarty MD COMPLICATIONS: None. ANESTHESIA: General. FINDINGS: Normal-appearing external genitalia. Atrophic-appearing vaginal epithelium. No adequate cervical tissue was identified on an exam. There was a small dimpling area, otherwise no like ectocervical tissue could be seen due to her healing from her previous cervical conization. Uterus approximately 6 cm in length. A pocket of mucus appearing collected fluid within the endocervical canal was noted during her surgery. Normal-appearing fallopian tubes and ovaries bilaterally and transperitoneal ureteral peristalsis was noted. Normal bladder mucosa and bilateral ureteral efflux were noted. INDICATIONS FOR THE PROCEDURE: Ms. Drea Louis is a 73-year-old female, who presented to clinic with findings of fluid contained within the endometrial canal and endocervical canal. The patient had a history of a cervical conization approximately 2 years ago due to an abnormal Pap smear; however, benign cervical pathology was noted on the conization procedure. She then underwent surveillance by Gynecology/Oncology with several abnormal Pap smears. The patient then had additional imaging done due to pelvic discomfort and was found to have this fluid collection within the endocervical and endometrial canal. The patient was counseled and dilation and curettage was recommended; however, not possible due to her lack of ectocervix to allow for access in the endometrial canal. Therefore, a hysterectomy was recommended. The patient was evaluated by Gynecology and myself and it was thought that the fluid was likely benign. However, has been an accumulation of mucus due to the process of healing, where her vaginal pressure essentially healed over the area, where her cervical conization had been performed. The patient was counseled and recommended for surgery and plan for a robotic-assisted total laparoscopic hysterectomy with a bilateral salpingo-oophorectomy. The patient also has symptoms of prolapse with bulging in the vagina and wished to have this addressed as well as her complaints of stress urinary incontinence. She had a postvoid residual of 75 mL in the clinic and undergone exam noting hypermobility of the urethra. The patient had been counseled on these options and elected for a mid-urethral sling and understood all risks, benefits, alternatives and indications for each part of her procedure. DESCRIPTION OF PROCEDURE: The patient was brought to the operating room. She was placed under general anesthesia and the patient was placed in dorsal lithotomy position using Jeff stirrups. She was prepped and draped in the sterile fashion. An official time-out was performed. She was given Ancef for surgical prophylaxis. A single-sided speculum was placed into the vagina noting the findings above. Again, noting that there was atrophic-appearing vaginal tissue, there was no true cervical tissue that could be verified; however, there was one small dimpling area. Therefore, this was thought initially to possibly be the cervical canal. The vaginal tissue was grasped near this area and then a dilator was inserted smoothly to approximately 6 cm. Therefore, the ALONA manipulator was inserted in this area and secured and this was thought to be again the dimpling on the cervical canal. However, she was essentially flushed with the vaginal tissue. The gloves were changed and attention was turned to the abdominal portion. A supraumbilical incision was made using the scalpel. The Veress needle was inserted into the peritoneal cavity noting a normal pressure. A 12 mm trocar was inserted. The patient was placed in steep Trendelenburg position. The robotic ports were placed, one on the right and one on the left aspect of the abdomen using local anesthesia and placed under direct visualization. Initial mailroom assistant port on the right side using an 11 mm port was placed using the same technique. The uterus was then manipulated and it was noted that the uterine manipulator was not properly located in the endometrial canal; however, had been placed laterally on the right aspect of the broad ligament. There was no bleeding noted. Therefore, the ALONA manipulator was then removed. It was re-evaluated and saw that there could be no manipulator placed based on that exam. Therefore, a large sponge stick with an indicator glove overlying was then placed in the vagina to allow for some manipulation and for delineation of the vaginal area. The additional third arm was then draped to the robot and additional robotic trocar on the left aspect of the abdomen was placed to use for manipulation as the ALONA manipulator was unable to be placed. The robot was then docked to the patient. All instruments were inserted. Upward traction manipulation was then placed on the uterus and both through the vagina and using the third arm to allow for tension to be placed in the uterosacral ligament and the bilateral ureters were noted with their course peristalsing away from the uterosacral ligament to lateral releasing. Incisions were made on the lateral aspect of both the right and left uterosacral ligament. The hysterectomy was begun on the right side. The right ureter was noted and noted to be peristalsing and seen transperitoneally. The right ovary and fallopian tube were elevated away from the pelvic sidewall. The IP ligament was coagulated multiple times and transected. The adnexa were then dissected more proximally and distally. The right round ligament was then coagulated multiple times and transected. The right broad ligament was then entered using blunt dissection. The posterior leaf of the broad ligament was undermined and transected down toward the level of the uterosacral ligament. The anterior leaf of the broad ligament was then also further undermined and transected down toward the level of the bladder to allow inferior reflection. The right uterine vessels were further skeletonized. The bladder was anteriorly reflected on the right aspect and the right uterine vessels were coagulated multiple times and transected. Attention was then turned to the left aspect. The left ovary was elevated and the left IP ligament was coagulated multiple times and transected. This dissection was carried along the inferior aspect of the left fallopian tube towards the cornua of the uterus. The left round ligament was then coagulated multiple times and transected and the left broad ligament was entered. The posterior leaf of the broad ligament was undermined and transected down toward the level of the uterosacral ligament and the anterior leaf of the broad ligament was also undermined and transected to allow reflection of the bladder inferiorly. Attention was then turned to the anterior aspect where more meticulous dissection was performed anteriorly to allow inferior reflection of the bladder. The left uterine vessels were further skeletonized and coagulated and transected. Attention was turned anteriorly. The pressure was placed vaginally with a large sponge stick and superior traction was placed with the third arm. The colpotomy was begun initially more proximally. However, it was noted during this area that it was into the endocervical canal where the mucous material was located with a benign-appearing pocket of mucus. This was quickly sectioned. The anterior dissection was performed more anteriorly reflecting the bladder further down away from the cervix and into the vagina. The colpotomy was then able to be performed anteriorly noting the blue indicator glove in the vagina and a large sponge stick noting the proper location. This was carried then around circumferentially along the sides and then posteriorly completely removing the remaining cervical tissue from the vagina. There were areas that required additional cautery along the uterine vessels with more hemostasis was quickly achieved. The rings were then placed into the vagina. The specimen was then removed through the vaginal canal. The pelvis was irrigated and cleared of all clot and debris. The uterine specimen was evaluated with complete removal of the cervix as well as the uterus, fallopian tubes, and ovaries. The vaginal cuff was then closed in a running fashion using 2-0 Stratafix suture. The pelvis was again irrigated and cleared of all clot and debris. The uterosacral ligament suspension was performed first on the right aspect again identifying the right ureter course and stitches were thrown from a lateral to medial aspect, incorporating the most proximal and distal aspect of the uterosacral ligament. The vaginal cuff was then incorporated and this was sutured to allow for cephalad traction of the vaginal cuff. This was performed bilaterally without complication. The pelvis was again irrigated and cleared of all clot and debris and the instruments were removed. The robot was undocked from the patient. The trocars were removed and the abdomen was deflated. The vaginal exam was then performed. This has largely been reduced with the uterosacral ligament suspension. Therefore, it was determined that only an Advantage Fit sling would be done. At this point, the vaginal mucosa was injected with lidocaine with epinephrine, approximately 1 cm away from the urethral orifice. The vaginal mucosa was grasped in a linear fashion between two Allis clamps and a small incision was made using a 15 blade scalpel. The mucosa was then undermined and transected up toward the level of the pubic rami bilaterally. The midline was marked right at the level of the pubic symphysis and the target was then marked bilaterally approximately 2 cm from the midline. The Lockett catheter was then removed and a guidewire was inserted. Also hydrodissection was performed bilaterally behind the pubic symphysis at the target site. The Advantage Fit sling was then appropriately secured to the tanker driver. The right aspect was then inserted into the vaginal mucosa incision and carefully placed directly behind the pubic symphysis and then exited at the target site. The same was performed to the left aspect. The cystoscope was then performed noting no injury to the bladder and also noting bilateral ureteral efflux noted and the patient required a dose of Lasix to allow for efflux to be visualized. However, it was a poor visualization due to the initial scope, which has improved when this was changed. The sling was then tightened by using the Monreal scissors to prevent overtightening of the sling. The vaginal mucosa was then closed in a running fashion using 2-0 Vicryl and gloves were exchanged and the abdominal incisions were closed. The 12 mm trocar incision was closed. The fascia was closed using 0 Vicryl. All skin incisions were closed using 4-0 Monocryl and Dermabond. The patient was then extubated without difficulty. All counts were correct x2. There were no complications. Job ID: [id number]
[2019-04-15 11:55] VITALS: BP 149/68; TEMP 97.9
--- NOTE | 2019-04-15 17:03 | PRG ---
DATE OF SERVICE: 04/15/2019 HISTORY OF PRESENT ILLNESS: Postop day #1 status post robotic assisted total laparoscopic hysterectomy with bilateral salpingo-oophorectomy, laparoscopic uterosacral ligament suspension, Advantage Fit mid urethral sling, and cystoscopy. SUBJECTIVE: The patient reports pain controlled with oral medications. She has ambulated without difficulty. Her Lockett catheter was recently removed this morning. The patient denies any vaginal bleeding or discharge. She denies any shortness of breath, chest pain, or other concerns. OBJECTIVE: VITAL SIGNS: Stable. She has mild hypertension, which is normal for her. Temperature last is 97.9, pulse 85, respiratory rate 20, oxygen saturation is 98% on room air, and blood pressure 149/68. General: No acute distress. CARDIOVASCULAR: Regular rate. RESPIRATORY: Unlabored breathing. ABDOMEN: Soft and mild distention. Incisions are clean, dry, and intact. Mild tenderness to palpation as expected postoperatively. EXTREMITIES: No edema. Negative Homans. LABORATORY DATA: Hemoglobin 9.7 and platelet count 132. Creatinine is 0.8. ASSESSMENT AND PLAN: Postop day #1 status post; 1. Robotic-assisted total laparoscopic hysterectomy with bilateral salpingo-oophorectomy. 2. Laparoscopic uterosacral ligament suspension. 3. Advantage Fit mid-urethral sling. 4. Cystoscopy. The patient underwent a voiding trial today. However, she was not successful. We will replace the Lockett bag and then plan for discharge home with a voiding trial in two days. Otherwise, she is meeting all post op requirements and ready for d/c home. Job ID: [id number] MTDD
--- NOTE | 2019-04-15 23:21 | DIS ---
DATE OF ADMISSION: 04/14/2019 DATE OF DISCHARGE: 04/15/2019 ADMISSION DIAGNOSES: Postoperative pain control status post robotic assisted total laparoscopic hysterectomy with bilateral salpingo-oophorectomy, uterosacral ligament suspension, Advantage Fit mid urethral sling, and cystoscopy. DISCHARGE DIAGNOSES: Postoperative pain control status post robotic assisted total laparoscopic hysterectomy with bilateral salpingo-oophorectomy, uterosacral ligament suspension, Advantage Fit mid urethral sling, and cystoscopy. BRIEF HOSPITAL COURSE: Ms. Drea Louis is a 73-year-old female status post robotic-assisted total laparoscopic hysterectomy with bilateral salpingo-oophorectomy, uterosacral ligament suspension, Advantage Fit mid urethral sling, and cystoscopy. The patient's intraoperative course was benign. Her postoperative course have been within normal parameters with the exception that she has urinary retention after her procedure. The patient failed voiding trial today, so a Lockett catheter was replaced and leg bag instructions were reviewed with the patient. Otherwise, her vitals and labs are stable and her exam is within normal parameters for postoperative day #1. ACTIVITY RESTRICTIONS: Pelvic rest. No heavy lifting, pushing, or pulling x6 weeks. Drain Lockett catheter. Leg bag instructions reviewed with RN. MEDICATIONS: 1. [place] 5/325 one tablet every 6 hours p.r.n. pain. 2. Motrin 800 mg one tablet every 8 hours p.r.n. pain. FOLLOWUP: Follow up in 2 days in clinic for voiding trial. Job ID: [id number] MTDD
== END 2019-04-15 17:49 | disposition home or self-care (01) ==
LOC: SDC 05:46 → 3SE 11:30 → SDC 04-15 17:49
PROVIDERS: ATTEND Obstetrics & Gynecology
PROC: 0UT94ZZ Resection of Uterus, Percutaneous Endoscopic Approach (ICD-10-PCS; principal; 2019-04-14)
PROC: 0UT24ZZ Resection of Bilateral Ovaries, Percutaneous Endoscopic Approach (ICD-10-PCS; 2019-04-14)
PROC: 0UT74ZZ Resection of Bilateral Fallopian Tubes, Percutaneous Endoscopic Approach (ICD-10-PCS; 2019-04-14)
PROC: 0USG4ZZ Reposition Vagina, Percutaneous Endoscopic Approach (ICD-10-PCS; 2019-04-14)
PROC: 0TSD0ZZ Reposition Urethra, Open Approach (ICD-10-PCS; 2019-04-14)
DX: N83.8 Other noninflammatory disorders of ovary, fallopian tube and broad ligament (principal); D06.9 Carcinoma in situ of cervix, unspecified; D25.9 Leiomyoma of uterus, unspecified; N81.10 Cystocele, unspecified; N39.3 Stress incontinence (female) (male); I10 Essential (primary) hypertension; E11.9 Type 2 diabetes mellitus without complications; E78.5 Hyperlipidemia, unspecified; K21.9 Gastro-esophageal reflux disease without esophagitis; Z79.84 Long term (current) use of oral hypoglycemic drugs; Z79.899 Other long term (current) drug therapy; Z87.891 Personal history of nicotine dependence; Z88.5 Allergy status to narcotic agent
CPT/HCPCS: 36415; 80048; 85027; 86850; 86900; 86901; 88307; J0131; J0670; J0690; J1885; J1940; J2405; J3010; S0028

== ENCOUNTER 2019-07-09 13:12 | Outpatient (CLI) | payer MEDICARE ==
--- NOTE | 2019-07-09 15:13 | MMO ---
Left Breast MAMMO Unilat Diag DDI LT+KYUNG. CLINICAL HISTORY: Patient is 74 years old and is seen for diagnostic exam. The patient has the following family history of breast cancer: maternal aunt. The patient has a history of Ultrasound guided core biopsy procedure revealed invasive ductal right breast carcinoma in September,. The patient has a history of right Lumpectomy in Oct, 2014 - malignant, right Ultrasound Guided Core Biopsy in September, - malignant, left Excisional Biopsy in 1993 - benign and right Excisional Biopsy in 1988 - benign. VIEWS: The views performed were: left craniocaudal with tomosynthesis; left mediolateral oblique with tomosynthesis; and left mediolateral with tomosynthesis. FILMS COMPARED: The present examination has been compared to prior imaging studies performed at [facility] on 12/11/2016, 01/16/2018, 02/12/2019 and 07/09/2019. This study has been interpreted with the assistance of computer-aided detection. MAMMOGRAM FINDINGS: There are scattered fibroglandular densities. There is a focal asymmetry seen in the CC view only seen in the outer region of the left breast. Focused US demonstrates a suspicious subcentimeter focus of shadowing in this region. US guided core biopsy is recommended. This was discussed with Dr. Medina at the time of interpretation. IMPRESSION: FOCAL ASYMMETRY IN THE LEFT BREAST IS SUSPICIOUS. BIOPSY IS RECOMMENDED. THE RESULTS OF THIS EXAM WERE SENT TO THE PATIENT. ACR BI-RADS Category 4 - Suspicious abnormality - biopsy should be considered MAMMOGRAPHY NOTE: 1. A negative mammogram report should not delay a biopsy if a dominant of clinically suspicious mass is present. 2. Approximately 10% to 15% of breast cancers are not detected by mammography. 3. Adenosis and dense breasts may obscure an underlying neoplasm. Reported by: JUSTYN MILNER MD Electonically Signed: [id number]
--- NOTE | 2019-07-09 15:39 | ULT ---
FOCUSED ULTRASOUND OF THE LEFT BREAST 07/09/19 COMPARISON: None. HISTORY: Palpable abnormality at the 2 o'clock position of the left breast. On mammogram, there is a subtle qu estionable focal asymmetry in this region. FINDINGS: Focused ultrasound in the area of palpable concern demonstrates a persistent irregular hypoechoic les ion with shadowing. Its ill-defined margins and degree of shadowing make measurement difficult. It is estimated in the 8-9 mm range. IMPRESSION: BI-RADS 4: Suspicious Abnormality - Biopsy Should Be Considered Usually requires biopsy. This lesion is amenable to ultrasound guided core biopsy. This lesion and recommendation for biopsy discussed with the patient at 2:25 p.m. 07/09/2019. POS: OFF
== END 2019-07-09 13:13 | disposition home or self-care (01) ==
LOC: BICMAMMO 13:12
PROVIDERS: ATTEND Internal Medicine Hematology & Oncology
DX: Z08 Encounter for follow-up examination after completed treatment for malignant neoplasm (principal); Z85.3 Personal history of malignant neoplasm of breast
CPT/HCPCS: 76642; 77065; G0279

== ENCOUNTER → 2019-07-14 | Day surgery (SDC) | payer MEDICARE ==
--- NOTE | 2019-07-14 13:41 | MMO ---
Left Breast MAMMO Unilat Diag DDI LT. CLINICAL HISTORY: Patient is 74 years old and is seen for breast biopsy. The patient has the following family history of breast cancer: maternal aunt. The patient has a history of Ultrasound guided core biopsy procedure revealed invasive ductal right breast carcinoma in September,. The patient has a history of left Ultrasound Guided Core Biopsy in July,, right Lumpectomy in Oct, 2014 - malignant, right Ultrasound Guided Core Biopsy in September, - malignant, left Excisional Biopsy in 1993 - benign and right Excisional Biopsy in 1988 - benign. VIEWS: The views performed were: left craniocaudal and left mediolateral oblique. FILMS COMPARED: The present examination has been compared to prior imaging studies performed at [facility] on 01/16/2018, 02/12/2019 and 07/09/2019. This study has been interpreted with the assistance of computer-aided detection. MAMMOGRAM FINDINGS: There are scattered fibroglandular densities. Clip in upper outer Left breast IMPRESSION: FINDING IN THE LEFT BREAST IS CONFIRMED UTILIZING POST PROCEDURE MAMMOGRAM. THE RESULTS OF THIS EXAM WERE SENT TO THE PATIENT. MAMMOGRAPHY NOTE: 1. A negative mammogram report should not delay a biopsy if a dominant of clinically suspicious mass is present. 2. Approximately 10% to 15% of breast cancers are not detected by mammography. 3. Adenosis and dense breasts may obscure an underlying neoplasm. Reported by: TRELL CABRERA MD Electonically Signed: [id number]
--- NOTE | 2019-07-14 14:51 | ULT ---
ULTRASOUND GUIDED LEFT BREAST CORE BIOPSY: Date: 07/14/2019 HISTORY: Palpable mass in the left breast at the 2 o'clock position. FINDINGS: Informed consent obtained prior to the procedure. Preprocedural imaging again demonstrates a shadowin g hypoechoic mass in the area of palpable concern at the 2 o'clock position of the left breast measur ing approximately 1.0 cm x 1.2 cm. Skin overlying this lesion was prepped and draped in the normal sterile fashion and anesthetized with 1% buffered lidocaine. With direct sonographic guidance, three 14 gauge core biopsies were obtained through the lesion. Obta ined specimens were sent to the laboratory for assessment. Post biopsy clip was placed and proper loc ation was confirmed on postprocedural mammography. The patient tolerated the procedure well. IMPRESSION: Successful ultrasound guided core biopsy of left breast mass. POS: PRERNA
== END ==
LOC: BICULT 12:47
PROVIDERS: ATTEND Internal Medicine Hematology & Oncology
PROC: 0H9U3ZX Drainage of Left Breast, Percutaneous Approach, Diagnostic (ICD-10-PCS; principal; 2019-07-14)
DX: C50.412 Malignant neoplasm of upper-outer quadrant of left female breast (principal); Z88.5 Allergy status to narcotic agent
CPT/HCPCS: 19083; 88305

== ENCOUNTER 2019-07-27 07:21 | Outpatient (CLI) | payer MEDICARE ==
[2019-07-27 12:41] LABS: #Basophils 0.1 thou/uL (0.0-0.2); #Eosinphils 0.2 thou/uL (0.0-0.7); #Lymphocytes 2.3 thou/uL (1.20-3.40); #Monocytes 0.3 thou/uL (0.11-0.59); #Neutrophils 2.5 thou/uL (1.40-6.50); %Eosinophils 4.4 % (0.0-10.0); %Lymphocytes 42.6 % (21.0-51.0); %Monocytes 5.9 % (0.0-10.0); %Neutrophils 46.1 % (42.0-75.0); Hemoglobin 12.2 g/dL (12.0-16.0); Mean Corpuscular HGB CONC 33.1 g/dL (32.0-36.0); Mean Corpuscular Hemoglobin 29.8 pg (27.0-31.0); Mean Platelet Volume 7.7 fL (7.4-10.4); Platelet Count 156 thou/uL (130-400); RBC Distribution Width 12.2 % (11.5-14.5); Red Blood Cell (RBC) Count 4.09 mill/uL (4.20-5.40); White Blood Cell (WBC) Count 5.3 thou/uL (4.8-10.8)
[2019-07-27 13:01] LABS: Anion Gap 12 mmol/L (10-20); BUN (Urea Nitrogen) 12 mg/dL (9.8-20.1); Calc. Creatinine Clearance 0 mL/min (70-130); Calcium 9.1 mg/dL (7.8-10.44); Carbon Dioxide 27 mmol/L (23-31); Chloride 105 mmol/L (98-107); Estimated GFR-MDRD 67; Glucose 109 mg/dL (83-110); Potassium 3.9 mmol/L (3.5-5.1); Sodium 140 mmol/L (136-145)
== END 2019-07-27 07:22 | disposition home or self-care (01) ==
LOC: LABBT 07:21
PROVIDERS: ATTEND Specialist
DX: Z01.812 Encounter for preprocedural laboratory examination (principal); C50.412 Malignant neoplasm of upper-outer quadrant of left female breast; Z17.1 Estrogen receptor negative status [ER-]
CPT/HCPCS: 80048; 85025

== ENCOUNTER 2019-07-30 08:10 | Day surgery (SDC) | payer MEDICARE ==
[2019-07-27 11:43] VITALS: BMI 19.9
--- NOTE | 2019-07-30 09:33 | NM ---
Nuclear medicine lymphoscintigraphy breast: HISTORY: 74-year-old female with left breast cancer. Lymphoscintigraphy for sentinel lymph node identification and surgical biopsy. TECHNIQUE: All injections preceded by alcohol swabbing. A series of 30-gauge needles used to inject buffered lid ocaine initially in periareolar 4 quadrants of left breast. A second series of 30-gauge needles used to inject 0.4 mCi of technetium 99m-filtered sulfur colloid cutaneously in same locations. Immed iate scintigraphy in anterior and lateral views. FINDINGS: There is uptake in 3 left axillary lymph nodes. The sentinel node is located mostly laterally and inf eriorly, with the greatest uptake. IMPRESSION: Successful lymphoscintigraphy, with identification of sentinel lymph node.
[2019-07-30] MEDS ORDERED: PROPOFOL 200 MG/20 ML VIAL ONE (09:52)
[2019-07-30] MEDS ORDERED: Ondansetron PF 4 MG/2 ML Vial ONE (09:52)
[2019-07-30] MEDS ORDERED: ePHEDrine/0.9% NaCl/PF SYRINGE 50 mg/10 ml ONE (09:52)
[2019-07-30] MEDS ORDERED: PHENYLEPHRINE-NS 100 MCG/ML 10 ML SYRINGE ONE (09:52)
[2019-07-30] MEDS ORDERED: Dexamethasone 20 MG/5 ML VIAL ONE (09:52)
[2019-07-30] MEDS ORDERED: Lidocaine 1% PF 5 ML VIAL ONE (09:52)
[2019-07-30] MEDS ORDERED: Ketorolac Tromethamine 30 MG/ML VIAL ONE (09:55)
[2019-07-30] MEDS ORDERED: Acetaminophen 500 MG TAB ONE (09:55)
[2019-07-30] MEDS ORDERED: Bupivacaine 0.25% HCL 30 ML VIAL ONE ×2 (12:21→14:55)
[2019-07-30] MEDS ORDERED: Isosulfan Blue 50 MG/5 ML VIAL ONE (12:21)
[2019-07-30] MEDS ORDERED: Lidocaine 1% w/Epinephrine 1:100K 20 ML VIAL ONE ×2 (12:21→14:55)
[2019-07-30] MEDS ORDERED: Fentanyl 100 MCG/2 ML VIAL ONE (12:22)
[2019-07-30] MEDS ORDERED: Midazolam HCl 2 mg/2 ml Vial ONE (12:22)
[2019-07-30] MEDS ORDERED: Iothalamate Meglumine 60% 50 ML VIAL FS ONE (13:11)
--- NOTE | 2019-07-30 15:01 | MMO ---
SINGLE VIEW OF A MAMMOGRAPHIC SPECIMEN FROM THE LEFT BREAST: COMPARISON: Diagnostic left breast mammogram dated 07/14/2019. FINDINGS: The submitted specimen demonstrates a spiculated mass , biopsy clip and localization wire. IMPRESSION: BIRADS category 6 - known malignancy. Findings concerning this specimen were called to Dr. Thornton at 2:49 p.m. on 07/30/2019. CODE CR POS: SJ
--- NOTE | 2019-07-30 15:40 | RAD ---
CHEST 1 VIEW: HISTORY: MediPort placement. COMPARISON: Radiograph 2018. FINDINGS: Port catheter is in place with tip at the inferior SVC. No pneumothorax. The remainder of the lungs is relatively clear. Cardiac silhouette and mediastinal contours are unre markable. IMPRESSION: Uncomplicated placement of port catheter. POS: [facility]
[2019-07-30] MEDS ORDERED: HYDROcodone/Acetaminophen 5/325 mg Tablet ONE (16:30)
--- NOTE | 2019-07-30 19:58 | OP ---
DATE OF PROCEDURE: 07/30/2019 PREOPERATIVE DIAGNOSIS: Left breast cancer (triple negative). POSTOPERATIVE DIAGNOSIS: Left breast cancer (triple negative). PROCEDURES PERFORMED: Placement of right internal jugular power compatible low-profile MediPort (after attempting subclavian placement), right subclavian vein venography, left breast ultrasound-guided needle localization, left breast needle-localized lumpectomy, left axillary sentinel lymph node mapping and sentinel lymph node biopsy. ANESTHESIA: General endotracheal. INDICATIONS: The patient is a 74-year-old white female. She has recently been diagnosed with a triple negative left breast cancer at approximately the 2 o'clock radian of the left breast. She is taken to the operating room at this time for treatment of her cancer and placement of a MediPort for chemotherapy. DESCRIPTION OF PROCEDURE: Informed consent was obtained. The patient was taken to the operating room, where general endotracheal anesthesia was obtained with the patient in supine position. Left breast and axilla as well as right chest wall and neck were prepped with ChloraPrep and draped in sterile fashion. Attention was turned first to the right chest wall. Local anesthetic was infiltrated and large-gauge needle was passed under the clavicle in the subclavian vein on the initial pass. Guidewire was passed through the needle, but could not be advanced down into the superior vena cava. Repeated attempts under fluoroscopy with a variety of anatomical manipulations never saw the wire passed inferior into the superior vena cava. It passed typically over into the left subclavian vein. I therefore decided to obtain venography to ensure that there was not occlusion at this level. A half-strength contrast infusion revealed that the contrast from the right subclavian vein did pass back into the right internal jugular vein, but also passed quickly down to the superior vena cava. I therefore decided to proceed with internal jugular placement as apparently the anatomy of the subclavian vein will not allow the catheter to pass. Large-gauge needle was passed into the right internal jugular vein on the initial pass. Guidewire was passed through the needle and fluoroscopically confirmed superior vena cava. An incision was created based on the wire insertion site. A counter incision was created on the right chest wall and a subcutaneous pocket was dissected. The catheter was tunneled from the pocket up to the right neck using a tunneler. Introducer dilator was then passed over the guidewire and the catheter was then passed through the introducer in the usual fashion and the introducer was removed, leaving the catheter within the internal jugular vein. I backed the catheter out until it was at approximately the atriocaval junction. The catheter was trimmed to appropriate length and secured to the locking hub of the MediPort. The port was secured to pectoral fascia with 2 interrupted sutures of 3-0 Prolene. The port aspirated blood freely and was flushed with heparinized saline. Catheter site was found to be ideal using fluoroscopy. Both incisions were closed using 3-0 and 4-0 Monocryl suture and Dermabond was placed externally. Attention was then turned to the left breast. The location of the malignancy was marked on the left breast in a grid fashion. I then turned my attention to the axilla. A transverse incision was created at the inferior aspect of the axilla and dissection was carried through skin and subcutaneous tissue and the superficial axillary fascia. Utilizing the Neoprobe and the blue dye that had been injected in the left breast earlier, I was able to identify 4 separate sentinel lymph nodes. The dominant sentinel lymph node was obtained bright blue and had very high counts (over 1000). The remaining nodes all had counts in the 100s and had variable amounts of blue-staining. Each lymph node was removed intact and all investing lymphatics were divided between clamps and 3-0 silk ties. The wound was closed in layers with 3-0 and 4-0 Monocryl. Additional local anesthetic was infiltrated during closure. Attention was turned to the breast. Using ultrasound guidance, a localizing needle was passed through the malignancy in a medial to lateral fashion. An incision was created based on the needle insertion extending laterally. Dissection was carried through skin and subcutaneous tissue. Flaps were raised about a centimeter into the breast. The lump of tissue to which the needle entered was dissected widely, concentrated on the inferior aspect of the needle. The specimen was removed intact. It was inspected with the ultrasound that the malignancy had reasonable margins around it. It was tagged with several sutures for specimen orientation. It was submitted for specimen mammography, which revealed that the clip was present within it. Meticulous hemostasis was obtained within the wound using cautery. The wound was closed in layers with 3-0 and 4-0 Monocryl. Additional local anesthetic was then instilled in the wound and infiltrated into the breast. Dermabond was placed externally to each of the four incision sites. There were no complications. The patient tolerated the procedure well, was taken to the recovery room in stable condition. Job ID: [id number]
== END 2019-07-30 17:00 | disposition home or self-care (01) ==
LOC: SDC 08:10
PROVIDERS: ATTEND Specialist
PROC: 02HV33Z Insertion of Infusion Device into Superior Vena Cava, Percutaneous Approach (ICD-10-PCS; principal; 2019-07-30)
PROC: 0HBU0ZZ Excision of Left Breast, Open Approach (ICD-10-PCS; 2019-07-30)
PROC: 07B60ZX Excision of Left Axillary Lymphatic, Open Approach, Diagnostic (ICD-10-PCS; 2019-07-30)
DX: C50.412 Malignant neoplasm of upper-outer quadrant of left female breast (principal); E11.9 Type 2 diabetes mellitus without complications; E78.5 Hyperlipidemia, unspecified; K21.9 Gastro-esophageal reflux disease without esophagitis; M85.80 Other specified disorders of bone density and structure, unspecified site; Z17.1 Estrogen receptor negative status [ER-]; Z79.810 Long term (current) use of selective estrogen receptor modulators (SERMs); Z79.83 Long term (current) use of bisphosphonates; Z79.84 Long term (current) use of oral hypoglycemic drugs; Z79.899 Other long term (current) drug therapy; Z88.5 Allergy status to narcotic agent
CPT/HCPCS: 19301; 36561; 38525; 38900; 71045; 76098; 78195; 88307; 88341; 88342; A9541; C1788; Q9968; J0690; J1100; J1642; J1885; J2001; J2250; J2405; J2704; J3010; S0020

== ENCOUNTER 2020-08-02 10:07 | Outpatient (CLI) | payer MEDICARE ==
--- NOTE | 2020-08-02 10:53 | MMO ---
Bilateral MAMMO Bilat Diag [id number]. CLINICAL HISTORY: Patient is 75 years old and is seen for screening. The patient has the following family history of breast cancer: maternal aunt. The patient has a history of Core biopsy procedure revealed invasive ductal left breast carcinoma in August, and Ultrasound guided core biopsy procedure revealed invasive ductal right breast carcinoma in September,. The patient has a history of left Ultrasound Guided Core Biopsy in July,, left Lumpectomy in July, - malignant, right Lumpectomy in Oct, 2014 - malignant, right Ultrasound Guided Core Biopsy in September, - malignant, left Excisional Biopsy in 1993 - benign and right Excisional Biopsy in 1988 - benign. VIEWS: The views performed were: bilateral craniocaudal with tomosynthesis; bilateral mediolateral oblique with tomosynthesis; and bilateral mediolateral with tomosynthesis. FILMS COMPARED: The present examination has been compared to prior imaging studies performed at [facility] on 02/12/2019, 07/09/2019 and 07/14/2019. This study has been interpreted with the assistance of computer-aided detection. MAMMOGRAM FINDINGS: There are scattered fibroglandular densities. There are areas of architectural distortion with associated post-surgical scars seen in both breasts. There are no suspicious masses, suspicious calcifications, or new areas of architectural distortion. IMPRESSION: A ROUTINE FOLLOW-UP MAMMOGRAM IN 1 YEAR IS RECOMMENDED. THE RESULTS OF THIS EXAM WERE SENT TO THE PATIENT. ACR BI-RADS Category 2 - Benign finding MAMMOGRAPHY NOTE: 1. A negative mammogram report should not delay a biopsy if a dominant of clinically suspicious mass is present. 2. Approximately 10% to 15% of breast cancers are not detected by mammography. 3. Adenosis and dense breasts may obscure an underlying neoplasm. Reported by: ZENAIDA BONDS MD Electonically Signed: [id number]
--- NOTE | 2020-08-02 10:53 | BD ---
EXAM: Bone densitometry using DEXA HISTORY: 75 yo female. Screening for postmenopausal osteoporosis FINDINGS: L1--bone mineral density 0.801 g/sq cm; T score -1.7 ; Z score 0.5 L2--bone mineral density 0.893 g/sq cm; T score -1.2 ; Z score 1.3 L3--bone mineral density 1.010 g/sq cm; T score -0.7 ; Z score 1.9 L4--bone mineral density 1.018 g/sq cm; T score -0.4 ; Z score 2.3 Total L1-L4--bone mineral density 0.931 g/sq cm; T score -1.1 ; Z score 1.5 Left femoral neck--bone mineral density0.682; T score -1.5 ; Z score 0.7 Total proximal left femur--bone mineral density 0.916; T score -0.2 ; Z score 1.7 The 10 year fracture risk for a major osteoporotic fracture is 11% and for a hip fracture is 2.5%. IMPRESSION: Osteopenia
== END 2020-08-02 10:08 | disposition home or self-care (01) ==
LOC: BICMAMMO 10:07
PROVIDERS: ATTEND Specialist
DX: Z13.820 Encounter for screening for osteoporosis (principal); N95.9 Unspecified menopausal and perimenopausal disorder; M85.89 Other specified disorders of bone density and structure, multiple sites
CPT/HCPCS: 77066; 77080; G0279

== ENCOUNTER 2021-08-30 08:20 | Outpatient (CLI) | payer MEDICARE | END 2021-08-30 08:21 | disposition home or self-care (01) | LOC: BICMAMMO 08:20 | PROVIDERS: ATTEND Internal Medicine Hematology & Oncology | DX: Z08 Encounter for follow-up examination after completed treatment for malignant neoplasm (principal); Z85.3 Personal history of malignant neoplasm of breast | CPT/HCPCS: 77066; G0279 ==

== ENCOUNTER 2022-04-13 08:45 | Outpatient (CLI) | payer MEDICARE | END 2022-04-13 08:46 | disposition home or self-care (01) | LOC: PET 08:45 | PROVIDERS: ATTEND Family Medicine | DX: C50.919 Malignant neoplasm of unspecified site of unspecified female breast (principal) | CPT/HCPCS: 78815; A9552 ==

== ENCOUNTER 2022-06-18 12:56 | Outpatient (CLI) | payer MEDICARE | END 2022-06-18 12:57 | disposition home or self-care (01) | LOC: BICMAMMO 12:56 | PROVIDERS: ATTEND Internal Medicine Hematology & Oncology | DX: C50.411 Malignant neoplasm of upper-outer quadrant of right female breast (principal); C50.412 Malignant neoplasm of upper-outer quadrant of left female breast; R92.8 Other abnormal and inconclusive findings on diagnostic imaging of breast; Z85.3 Personal history of malignant neoplasm of breast; Z98.890 Other specified postprocedural states | CPT/HCPCS: 76642; 77065; G0279 ==

== ENCOUNTER 2022-07-04 09:22 | Outpatient (CLI) | payer MEDICARE | END 2022-07-04 09:23 | disposition home or self-care (01) | LOC: BICMRI 09:22 | PROVIDERS: ATTEND Internal Medicine Hematology & Oncology | DX: R92.8 Other abnormal and inconclusive findings on diagnostic imaging of breast (principal) | CPT/HCPCS: 82565; C8908; A9577 ==

== ENCOUNTER 2023-06-27 16:48 | Observation (INO) | payer MEDICARE ==
[2023-06-27 18:43] VITALS: BMI 29.8
[2023-06-27] MEDS ORDERED: Ondansetron PF 4 MG/2 ML Vial IVP PRN (18:49)
[2023-06-27] MEDS ORDERED: Acetaminophen 325 MG TAB PO PRN (18:49)
[2023-06-27] MEDS ORDERED: Ondansetron ODT 4 MG TAB PO PRN (18:49)
[2023-06-27] MEDS ORDERED: hydrALAZINE 20 MG/ML VIAL SLOW IVP PRN (18:56)
[2023-06-27] MEDS ORDERED: Dextrose 50% Abboject 50 ML SYRINGE SLOW IVP PRN (18:56)
[2023-06-27] MEDS ORDERED: Dextrose 5% in Water 1,000 ML IV PRN (18:56)
[2023-06-27] MEDS ORDERED: Glucagon 1 MG/ML KIT IM PRN (18:56)
[2023-06-27] MEDS: Atorvastatin Calcium 40 MG TAB PO SCH (22:59)
[2023-06-27] MEDS: HumaLOG 300 UNITS/3 ML VIAL SC PRN (23:02)
[2023-06-28 06:37] LABS: #Eosinphils 0.2 thou/uL (0.0-0.7); #Monocytes 0.4 thou/uL (0.11-0.59); %Basophils 0.4 % (0.0-1.0); %Eosinophils 4.5 % (0.0-10.0); %Lymphocytes 32.5 % (21.0-51.0); %Monocytes 6.9 % (0.0-10.0); %Neutrophils 55.1 % (42.0-75.0); Hematocrit 34.7 % (36.0-47.0); Hemoglobin 11.3 g/dL (12.0-16.0); Mean Corpuscular HGB CONC 32.6 g/dL (32.0-36.0); Mean Corpuscular Hemoglobin 29.7 pg (27.0-31.0); Mean Corpuscular Volume 91.1 fl (78.0-98.0); Mean Platelet Volume 9.8 fL (7.4-10.4); Platelet Count 184 10x3/uL (130-400); RBC Distribution Width 13.2 % (11.5-14.5); Red Blood Cell (RBC) Count 3.81 mill/uL (4.20-5.40); White Blood Cell (WBC) Count 5.4 10x3/uL (4.8-10.8)
[2023-06-28 06:43] LABS: Hemoglobin A1c 7.4 % (4.0-6.0)
[2023-06-28 07:04] LABS: Anion Gap 11 mmol/L (10-20); BUN (Urea Nitrogen) 17 mg/dL (9.8-20.1); Calc. Creatinine Clearance 51 mL/min (70-130); Calcium 8.8 mg/dL (7.8-10.44); Carbon Dioxide 23 mmol/L (23-31); Cardiac Risk 4.5 (Less than 4.5); Chloride 109 mmol/L (98-107); Cholesterol 189 mg/dl (< 200 Desired); Estimated GFR 57; Glucose 144 mg/dL (83-110); HDL Cholesterol 42 mg/dL (>60 Neg Risk); LDL Cholesterol, Calculated 123 mg/dL; Magnesium 1.6 mg/dL (1.6-2.6); Potassium 3.9 mmol/L (3.5-5.1); Sodium 139 mmol/L (136-145); Triglycerides 122 mg/dL (Less than 150)
[2023-06-28] MEDS: Aspirin 81 mg Enteric Coated Tablet PO SCH (08:49)
[2023-06-28] MEDS ORDERED: FOLIC ACID PO SCH (09:00)
[2023-06-28] MEDS ORDERED: VIT B12 PO SCH (09:00)
[2023-06-28] MEDS ORDERED: [UNRECOGNIZED DRUG - OTHER] PO SCH (09:00)
[2023-06-28] MEDS ORDERED: B6 PO SCH (09:00)
[2023-06-28] MEDS ORDERED: FLU VACC QS2023(65UP)/MF59C/PF 60 MCG/0.5 ML SYRINGE IM ONE (09:00)
[2023-06-28] MEDS: Insulin Glargine 30 UNITS/0.3 ML VIAL SC SCH (13:29)
[2023-06-28] MEDS: HumaLOG 300 UNITS/3 ML VIAL SC PRN ×2 (14:05→21:31)
[2023-06-28] MEDS ORDERED: clonazePAM 0.5 MG TAB PO SCH (21:00)
[2023-06-28] MEDS ORDERED: Tamoxifen 10 MG TAB PO SCH (21:00)
[2023-06-28] MEDS ORDERED: Latanoprost 0.005% Ophth Soln 2.5 ml Bottle EA EYE SCH (21:00)
[2023-06-28] MEDS: Atorvastatin Calcium 40 MG TAB PO SCH (21:30)
[2023-06-29 05:50] LABS: #Eosinphils 0.3 thou/uL (0.0-0.7); #Monocytes 0.4 thou/uL (0.11-0.59); #Neutrophils 2.5 thou/uL (1.40-6.50); %Basophils 0.4 % (0.0-1.0); %Lymphocytes 36.2 % (21.0-51.0); %Monocytes 7.8 % (0.0-10.0); %Neutrophils 50.2 % (42.0-75.0); Hematocrit 34.7 % (36.0-47.0); Hemoglobin 11.4 g/dL (12.0-16.0); Mean Corpuscular HGB CONC 32.9 g/dL (32.0-36.0); Mean Corpuscular Hemoglobin 30.2 pg (27.0-31.0); Mean Corpuscular Volume 91.8 fl (78.0-98.0); Mean Platelet Volume 9.9 fL (7.4-10.4); Platelet Count 176 10x3/uL (130-400); RBC Distribution Width 13.2 % (11.5-14.5); Red Blood Cell (RBC) Count 3.78 mill/uL (4.20-5.40)
[2023-06-29 06:10] LABS: Anion Gap 14 mmol/L (10-20); BUN (Urea Nitrogen) 19 mg/dL (9.8-20.1); Calc. Creatinine Clearance 47 mL/min (70-130); Calcium 9.2 mg/dL (7.8-10.44); Carbon Dioxide 21 mmol/L (23-31); Chloride 107 mmol/L (98-107); Estimated GFR 52; Glucose 154 mg/dL (83-110); Potassium 3.7 mmol/L (3.5-5.1); Sodium 138 mmol/L (136-145)
[2023-06-29 08:00] VITALS: TEMP 97.8
[2023-06-29] MEDS: Insulin Glargine 30 UNITS/0.3 ML VIAL SC SCH (09:02)
[2023-06-29] MEDS: Aspirin 81 mg Enteric Coated Tablet PO SCH (09:02)
[2023-06-29 11:59] VITALS: BP 138/66
== END 2023-06-29 11:22 | disposition home or self-care (01) ==
LOC: 2SE 18:30
PROVIDERS: ADMIT Internal Medicine; ATTEND Internal Medicine
PROC: B24BYZZ Ultrasonography of Heart with Aorta using Other Contrast (ICD-10-PCS; principal; 2023-06-29)
DX: G45.9 Transient cerebral ischemic attack, unspecified (principal); R53.1 Weakness; I10 Essential (primary) hypertension; E78.5 Hyperlipidemia, unspecified; E11.9 Type 2 diabetes mellitus without complications; Z88.5 Allergy status to narcotic agent; Z85.3 Personal history of malignant neoplasm of breast; Z85.828 Personal history of other malignant neoplasm of skin; Z98.890 Other specified postprocedural states; Z79.4 Long term (current) use of insulin; Z98.51 Tubal ligation status; Z98.41 Cataract extraction status, right eye; Z98.42 Cataract extraction status, left eye; Z90.710 Acquired absence of both cervix and uterus; Z79.84 Long term (current) use of oral hypoglycemic drugs; Z79.899 Other long term (current) drug therapy; Z90.49 Acquired absence of other specified parts of digestive tract
CPT/HCPCS: 70551; 80048 ×2; 80061; 82962 ×3; 83036; 83735; 84443; 85025 ×2; 93306; 93880; 97116; G0378 ×3; 36415; 36416; J1815

== ENCOUNTER 2023-07-02 17:18 | Observation (INO) | payer MEDICARE ==
[2023-07-02 19:34] VITALS: BMI 22.5
[2023-07-02] MEDS ORDERED: Ondansetron ODT 4 MG TAB PO PRN (19:45)
[2023-07-02] MEDS ORDERED: Acetaminophen 325 MG TAB PO PRN (19:45)
[2023-07-02] MEDS ORDERED: Calcium Carbonate 500 MG ChewTAB PO PRN (19:45)
[2023-07-02 20:43] LABS: Anion Gap 13 mmol/L (10-20); BUN (Urea Nitrogen) 17 mg/dL (9.8-20.1); Calc. Creatinine Clearance 35 mL/min (70-130); Calcium 9.3 mg/dL (7.8-10.44); Carbon Dioxide 22 mmol/L (23-31); Chloride 107 mmol/L (98-107); Estimated GFR 50; Glucose 91 mg/dL (83-110); Potassium 3.5 mmol/L (3.5-5.1); Sodium 138 mmol/L (136-145)
[2023-07-02] MEDS ORDERED: Famotidine 20 MG TAB PO SCH (21:00)
[2023-07-02] MEDS ORDERED: clonazePAM 0.5 MG TAB PO SCH (21:00)
[2023-07-02] MEDS ORDERED: Latanoprost 0.005% Ophth Soln 2.5 ml Bottle EA EYE SCH (21:00)
[2023-07-02] MEDS: Ranolazine 500 MG ER.TAB PO SCH (21:39)
[2023-07-02] MEDS ORDERED: Dextrose 5% in Water 1,000 ML IV PRN (23:01)
[2023-07-02] MEDS ORDERED: Glucagon 1 MG/ML KIT IM PRN (23:01)
[2023-07-02] MEDS ORDERED: Dextrose 50% Abboject 50 ML SYRINGE SLOW IVP PRN (23:01)
[2023-07-02] MEDS ORDERED: HumaLOG 300 UNITS/3 ML VIAL SC PRN ×2 (23:01)
[2023-07-03 04:20] LABS: #Eosinphils 0.2 thou/uL (0.0-0.7); #Monocytes 0.4 thou/uL (0.11-0.59); #Neutrophils 2.7 thou/uL (1.40-6.50); %Basophils 0.8 % (0.0-1.0); %Eosinophils 4.4 % (0.0-10.0); %Lymphocytes 35.2 % (21.0-51.0); Hematocrit 36.9 % (36.0-47.0); Hemoglobin 11.9 g/dL (12.0-16.0); Mean Corpuscular HGB CONC 32.2 g/dL (32.0-36.0); Mean Corpuscular Hemoglobin 29.9 pg (27.0-31.0); Mean Corpuscular Volume 92.7 fl (78.0-98.0); Mean Platelet Volume 9.9 fL (7.4-10.4); Platelet Count 181 10x3/uL (130-400); RBC Distribution Width 13.1 % (11.5-14.5); Red Blood Cell (RBC) Count 3.98 mill/uL (4.20-5.40); White Blood Cell (WBC) Count 5.2 10x3/uL (4.8-10.8)
[2023-07-03 05:11] LABS: Anion Gap 14 mmol/L (10-20); BUN (Urea Nitrogen) 22 mg/dL (9.8-20.1); Calc. Creatinine Clearance 29 mL/min (70-130); Calcium 8.8 mg/dL (7.8-10.44); Carbon Dioxide 22 mmol/L (23-31); Chloride 106 mmol/L (98-107); Estimated GFR 39; Glucose 156 mg/dL (83-110); Potassium 3.9 mmol/L (3.5-5.1); Sodium 138 mmol/L (136-145)
[2023-07-03] MEDS ORDERED: Lisinopril 20 MG TAB PO SCH (09:00)
[2023-07-03] MEDS ORDERED: Nebivolol HCl 5 MG TAB PO SCH (09:00)
[2023-07-03] MEDS ORDERED: Aspirin 81 mg Enteric Coated Tablet PO SCH (09:00)
[2023-07-03] MEDS ORDERED: FOLIC ACID PO SCH (09:00)
[2023-07-03] MEDS ORDERED: Atorvastatin Calcium 10 MG TAB PO SCH (09:00)
[2023-07-03] MEDS ORDERED: VIT B12 PO SCH (09:00)
[2023-07-03] MEDS ORDERED: Amlodipine 10 MG TAB PO SCH (09:00)
[2023-07-03] MEDS ORDERED: [UNRECOGNIZED DRUG - OTHER] PO SCH (09:00)
[2023-07-03] MEDS ORDERED: B6 PO SCH (09:00)
[2023-07-03] MEDS: Ranolazine 500 MG ER.TAB PO SCH (09:00)
[2023-07-03] MEDS ORDERED: Insulin Glargine 30 UNITS/0.3 ML VIAL SC SCH (09:00)
[2023-07-03 12:00] VITALS: BP 136/66; TEMP 97.5
[2023-07-04] MEDS ORDERED: FLU VACC QS2023(65UP)/MF59C/PF 60 MCG/0.5 ML SYRINGE IM ONE (09:00)
[2023-07-04] MEDS ORDERED: Atorvastatin Calcium 10 MG TAB PO SCH (21:00)
== END 2023-07-03 14:52 | disposition home or self-care (01) ==
LOC: 2SE 18:47
PROVIDERS: ADMIT Family Medicine; ATTEND Emergency Medicine
DX: R53.1 Weakness (principal); I10 Essential (primary) hypertension; E78.5 Hyperlipidemia, unspecified; E11.9 Type 2 diabetes mellitus without complications; Z88.5 Allergy status to narcotic agent; Z88.1 Allergy status to other antibiotic agents; Z88.2 Allergy status to sulfonamides; Z79.899 Other long term (current) drug therapy; Z79.84 Long term (current) use of oral hypoglycemic drugs; Z79.82 Long term (current) use of aspirin; Z98.890 Other specified postprocedural states; Z85.3 Personal history of malignant neoplasm of breast; Z90.89 Acquired absence of other organs; Z90.710 Acquired absence of both cervix and uterus
CPT/HCPCS: 70551; 80048 ×2; 82962 ×2; 85025; G0378 ×2; 36415; 36416; J1815

== ENCOUNTER 2023-08-14 13:53 | Inpatient (IN) | payer MEDICARE ==
[~2023-08-14 13:53] MED LIST: Acetaminophen 325 MG TAB PO PRN; Ondansetron ODT 4 MG TAB SL PRN; Ondansetron PF 4 MG/2 ML Vial IVP PRN
[2023-08-14 15:14] VITALS: BMI 21.2
[2023-08-14] MEDS ORDERED: HumaLOG 300 UNITS/3 ML VIAL SC PRN (16:52)
[2023-08-14] MEDS ORDERED: Glucagon 1 MG/ML KIT IM PRN (16:52)
[2023-08-14] MEDS ORDERED: Dextrose 5% in Water 1,000 ML IV PRN (16:52)
[2023-08-14] MEDS ORDERED: Dextrose 50% Abboject 50 ML SYRINGE SLOW IVP PRN (16:52)
[2023-08-14 18:55] LABS: Hemoglobin A1c 6.8 % (4.0-6.0)
[2023-08-14] MEDS: Atorvastatin Calcium 40 MG TAB PO SCH (20:35)
[2023-08-14] MEDS: Ranolazine ER 500 MG TAB PO SCH (20:35)
[2023-08-14] MEDS: Latanoprost 0.005% Ophth Soln 2.5 ml Bottle EA EYE SCH (20:35)
[2023-08-14] MEDS: clonazePAM 0.5 MG TAB PO SCH (20:35)
[2023-08-15 05:17] LABS: #Eosinphils 0.3 thou/uL (0.0-0.7); #Monocytes 0.4 thou/uL (0.11-0.59); #Neutrophils 2.6 thou/uL (1.40-6.50); %Basophils 0.4 % (0.0-1.0); %Eosinophils 7.1 % (0.0-10.0); %Lymphocytes 28.3 % (21.0-51.0); %Monocytes 8.9 % (0.0-10.0); %Neutrophils 54.5 % (42.0-75.0); Hematocrit 33.5 % (36.0-47.0); Hemoglobin 10.7 g/dL (12.0-16.0); Mean Corpuscular HGB CONC 31.9 g/dL (32.0-36.0); Mean Corpuscular Hemoglobin 30.1 pg (27.0-31.0); Mean Corpuscular Volume 94.1 fl (78.0-98.0); Mean Platelet Volume 9.7 fL (7.4-10.4); Platelet Count 183 10x3/uL (130-400); RBC Distribution Width 13.9 % (11.5-14.5); Red Blood Cell (RBC) Count 3.56 mill/uL (4.20-5.40); White Blood Cell (WBC) Count 4.8 10x3/uL (4.8-10.8)
[2023-08-15 05:59] LABS: Anion Gap 13 mmol/L (10-20); BUN (Urea Nitrogen) 18 mg/dL (9.8-20.1); Calc. Creatinine Clearance 28 mL/min (70-130); Calcium 8.7 mg/dL (7.8-10.44); Carbon Dioxide 23 mmol/L (23-31); Cardiac Risk 4.4 (Less than 4.5); Chloride 106 mmol/L (98-107); Cholesterol 197 mg/dl (< 200 Desired); Estimated GFR 40; Glucose 181 mg/dL (83-110); HDL Cholesterol 45 mg/dL (>60 Neg Risk); LDL Cholesterol, Calculated 118 mg/dL; Potassium 3.7 mmol/L (3.5-5.1); Sodium 138 mmol/L (136-145); Triglycerides 170 mg/dL (Less than 150)
[2023-08-15] MEDS ORDERED: B6 PO SCH (09:00)
[2023-08-15] MEDS ORDERED: [UNRECOGNIZED DRUG - OTHER] PO SCH (09:00)
[2023-08-15] MEDS ORDERED: VIT B12 PO SCH (09:00)
[2023-08-15] MEDS ORDERED: FOLIC ACID PO SCH (09:00)
[2023-08-15] MEDS ORDERED: Aspirin 81 mg Enteric Coated Tablet PO SCH (09:00)
[2023-08-15] MEDS: Aspirin 81 mg Enteric Coated Tablet PO SCH (10:10)
[2023-08-15] MEDS: Lisinopril 20 MG TAB PO SCH (10:10)
[2023-08-15] MEDS: Clopidogrel Bisulfate 75 MG TAB PO SCH (10:10)
[2023-08-15] MEDS: Nebivolol HCl 5 MG TAB PO SCH (10:10)
[2023-08-15] MEDS: Amlodipine 10 MG TAB PO SCH (10:10)
[2023-08-15] MEDS: HumaLOG 300 UNITS/3 ML VIAL SC PRN (15:09)
[2023-08-15] MEDS: Insulin Glargine 30 UNITS/0.3 ML VIAL SC SCH (20:43)
[2023-08-16 05:03] LABS: #Eosinphils 0.3 thou/uL (0.0-0.7); #Monocytes 0.5 thou/uL (0.11-0.59); #Neutrophils 2.7 thou/uL (1.40-6.50); %Basophils 0.6 % (0.0-1.0); %Eosinophils 6.2 % (0.0-10.0); %Lymphocytes 34.2 % (21.0-51.0); %Monocytes 8.8 % (0.0-10.0); %Neutrophils 49.5 % (42.0-75.0); Hematocrit 33.1 % (36.0-47.0); Hemoglobin 10.8 g/dL (12.0-16.0); Mean Corpuscular HGB CONC 32.6 g/dL (32.0-36.0); Mean Corpuscular Hemoglobin 30.3 pg (27.0-31.0); Mean Platelet Volume 9.7 fL (7.4-10.4); Platelet Count 180 10x3/uL (130-400); RBC Distribution Width 13.8 % (11.5-14.5); Red Blood Cell (RBC) Count 3.56 mill/uL (4.20-5.40); White Blood Cell (WBC) Count 5.4 10x3/uL (4.8-10.8)
[2023-08-16 05:28] LABS: Anion Gap 11 mmol/L (10-20); BUN (Urea Nitrogen) 24 mg/dL (9.8-20.1); Calc. Creatinine Clearance 35 mL/min (70-130); Calcium 9.3 mg/dL (7.8-10.44); Carbon Dioxide 22 mmol/L (23-31); Chloride 109 mmol/L (98-107); Estimated GFR 53; Glucose 137 mg/dL (83-110); Potassium 3.7 mmol/L (3.5-5.1); Sodium 138 mmol/L (136-145)
[2023-08-16 08:47] VITALS: TEMP 98.1
[2023-08-16] MEDS ORDERED: Lidocaine 1% w/Epinephrine 1:100K 20 ML VIAL ONE (08:47)
[2023-08-16 13:28] VITALS: BP 113/58
== END 2023-08-16 15:55 | disposition home or self-care (01) | DRG 941 ==
LOC: 2SE 13:53 → INTOOBSV 13:53 → OBSVTOIN 08-15 12:33
PROVIDERS: ADMIT Internal Medicine; ATTEND Internal Medicine
PROC: 0JH602Z Insertion of Monitoring Device into Chest Subcutaneous Tissue and Fascia, Open Approach (ICD-10-PCS; principal; 2023-08-16)
DX: R53.1 Weakness (principal); R42 Dizziness and giddiness; I10 Essential (primary) hypertension; E78.5 Hyperlipidemia, unspecified; E11.9 Type 2 diabetes mellitus without complications; Z79.82 Long term (current) use of aspirin; Z79.899 Other long term (current) drug therapy; Z79.4 Long term (current) use of insulin; Z88.5 Allergy status to narcotic agent; Z88.1 Allergy status to other antibiotic agents; K21.9 Gastro-esophageal reflux disease without esophagitis; H40.9 Unspecified glaucoma; Z90.49 Acquired absence of other specified parts of digestive tract; Z90.710 Acquired absence of both cervix and uterus; Z88.2 Allergy status to sulfonamides; Z98.890 Other specified postprocedural states
CPT/HCPCS: 33285; 36415; 36416; 70551; 80048; 80061; 83036; 84443; 85025; C1764; C1769; G0378; J1815

== ENCOUNTER 2023-08-20 07:07 | Inpatient (IN) | payer MEDICARE ==
[2023-08-20 07:25] LABS: #Eosinphils 0.2 thou/uL (0.0-0.7); #Monocytes 0.4 thou/uL (0.11-0.59); %Basophils 0.6 % (0.0-1.0); %Eosinophils 4.7 % (0.0-10.0); %Lymphocytes 26.6 % (21.0-51.0); %Monocytes 8.3 % (0.0-10.0); %Neutrophils 58.8 % (42.0-75.0); Hematocrit 34.7 % (36.0-47.0); Hemoglobin 11.5 g/dL (12.0-16.0); Mean Corpuscular HGB CONC 33.1 g/dL (32.0-36.0); Mean Corpuscular Hemoglobin 30.7 pg (27.0-31.0); Mean Corpuscular Volume 92.5 fl (78.0-98.0); Mean Platelet Volume 9.5 fL (7.4-10.4); Platelet Count 164 10x3/uL (130-400); RBC Distribution Width 13.6 % (11.5-14.5); Red Blood Cell (RBC) Count 3.75 mill/uL (4.20-5.40); White Blood Cell (WBC) Count 5.2 10x3/uL (4.8-10.8)
[2023-08-20 07:46] LABS: ALT (SGPT) 15 U/L (8-55); AST (SGOT) 16 U/L (5-34); Alkaline Phosphatase 41 U/L (40-110); Anion Gap 13 mmol/L (10-20); BUN (Urea Nitrogen) 25 mg/dL (9.8-20.1); Bilirubin, Total 0.7 mg/dL (0.2-1.2); CK (CPK) 64 U/L (29-168); Calc. Creatinine Clearance 0 mL/min (70-130); Calcium 9.5 mg/dL (7.8-10.44); Carbon Dioxide 21 mmol/L (23-31); Chloride 108 mmol/L (98-107); Estimated GFR 34; Globulin 2.4 g/dL (2.4-3.5); Glucose 184 mg/dL (83-110); Potassium 4.1 mmol/L (3.5-5.1); Protein, Total 6.4 g/dL (5.8-8.1); Sodium 138 mmol/L (136-145)
[2023-08-20 07:48] LABS: Troponin I Less than 0.010 ng/mL (< 0.028)
[2023-08-20 07:54] LABS: INR-International Normal Ratio 1.1; PTT 27.8 sec (22.9-36.1); Prothrombin Time 14.5 sec (12.0-14.7)
[2023-08-20] MEDS ORDERED: Calcium Carbonate 500 MG ChewTAB PO PRN (09:28)
[2023-08-20] MEDS ORDERED: Senokot S 8.6-50 MG TAB PO PRN (09:28)
[2023-08-20] MEDS ORDERED: hydrALAZINE 20 MG/ML VIAL SLOW IVP PRN (09:28)
[2023-08-20] MEDS ORDERED: Acetaminophen 325 MG TAB PO PRN (09:28)
[2023-08-20] MEDS ORDERED: Acetaminophen 650 MG Suppository PR PRN (09:28)
[2023-08-20] MEDS ORDERED: Ondansetron PF 4 MG/2 ML Vial IVP PRN (09:28)
[2023-08-20] MEDS: Sodium Chloride 0.9% 1,000 ML IV SCH (12:12)
[2023-08-20] MEDS ORDERED: Iopamidol-370 76% 500 ML MDV (1 ML CHARGE) ONE (12:22)
[2023-08-20 16:01] LABS: Platelet Count 177 thou/uL (130-400)
[2023-08-20 16:21] LABS: EPI 140 sec (67-192)
[2023-08-20] MEDS ORDERED: Dextrose 5% in Water 1,000 ML IV PRN (18:34)
[2023-08-20] MEDS ORDERED: Dextrose 50% Abboject 50 ML SYRINGE SLOW IVP PRN (18:34)
[2023-08-20] MEDS ORDERED: HumaLOG 300 UNITS/3 ML VIAL SC PRN ×2 (18:34)
[2023-08-20] MEDS ORDERED: Glucagon 1 MG/ML KIT IM PRN (18:34)
[2023-08-20] MEDS: Ranolazine ER 500 MG TAB PO SCH (21:31)
[2023-08-20] MEDS: clonazePAM 0.5 MG TAB PO SCH (21:31)
[2023-08-20] MEDS: Atorvastatin Calcium 40 MG TAB PO SCH (21:31)
[2023-08-20] MEDS: Insulin Glargine 30 UNITS/0.3 ML VIAL SC SCH (21:31)
[2023-08-20 22:53] VITALS: BMI 21.0
[2023-08-21 06:33] LABS: #Eosinphils 0.3 thou/uL (0.0-0.7); #Monocytes 0.4 thou/uL (0.11-0.59); %Basophils 0.5 % (0.0-1.0); %Eosinophils 6.7 % (0.0-10.0); %Lymphocytes 36.3 % (21.0-51.0); %Monocytes 9.1 % (0.0-10.0); %Neutrophils 46.7 % (42.0-75.0); Hematocrit 30.5 % (36.0-47.0); Mean Corpuscular HGB CONC 32.8 g/dL (32.0-36.0); Mean Corpuscular Hemoglobin 30.9 pg (27.0-31.0); Mean Corpuscular Volume 94.1 fl (78.0-98.0); Mean Platelet Volume 9.4 fL (7.4-10.4); Platelet Count 153 10x3/uL (130-400); RBC Distribution Width 13.9 % (11.5-14.5); Red Blood Cell (RBC) Count 3.24 mill/uL (4.20-5.40); White Blood Cell (WBC) Count 4.2 10x3/uL (4.8-10.8)
[2023-08-21 06:47] LABS: Hemoglobin A1c 6.9 % (4.0-6.0)
[2023-08-21 07:00] LABS: ALT (SGPT) 12 U/L (8-55); AST (SGOT) 15 U/L (5-34); Albumin 3.3 g/dL (3.4-4.8); Alkaline Phosphatase 31 U/L (40-110); Anion Gap 10 mmol/L (10-20); BUN (Urea Nitrogen) 16 mg/dL (9.8-20.1); Bilirubin, Total 0.4 mg/dL (0.2-1.2); Calc. Creatinine Clearance 39 mL/min (70-130); Calcium 8.5 mg/dL (7.8-10.44); Carbon Dioxide 23 mmol/L (23-31); Chloride 111 mmol/L (98-107); Cholesterol 166 mg/dl (< 200 Desired); Estimated GFR 61; Glucose 73 mg/dL (83-110); HDL Cholesterol 41 mg/dL (>60 Neg Risk); LDL Cholesterol, Calculated 101 mg/dL; Potassium 3.8 mmol/L (3.5-5.1); Protein, Total 5.3 g/dL (5.8-8.1); Sodium 140 mmol/L (136-145); Triglycerides 118 mg/dL (Less than 150)
[2023-08-21] MEDS: Clopidogrel Bisulfate 75 MG TAB PO SCH (09:48)
[2023-08-21] MEDS: Aspirin 81 mg Enteric Coated Tablet PO SCH (09:48)
[2023-08-21] MEDS: Enoxaparin 30 MG (0.3 mL) SYRINGE SC SCH (09:48)
[2023-08-21] MEDS: Sertraline 25 MG TAB PO SCH (09:48)
[2023-08-22 08:09] VITALS: TEMP 98.3
[2023-08-22] MEDS: Apixaban 5 MG TAB PO SCH (08:32)
[2023-08-22 11:55] VITALS: BP 142/61
[2023-08-22] MEDS ORDERED: Atorvastatin Calcium 40 MG TAB PO SCH (21:00)
== END 2023-08-22 16:24 | disposition home or self-care (01) | DRG 69 ==
LOC: ERS 07:07 → SUATTDRO 07:07 → ERHOLD 09:36 → 2SE 19:45 → OBSVTOIN 08-22 11:47
PROVIDERS: ADMIT Internal Medicine; ATTEND Internal Medicine
DX: G45.9 Transient cerebral ischemic attack, unspecified (principal); I12.9 Hypertensive chronic kidney disease with stage 1 through stage 4 chronic kidney disease, or unspecified chronic kidney disease; N18.9 Chronic kidney disease, unspecified; E11.22 Type 2 diabetes mellitus with diabetic chronic kidney disease; I48.91 Unspecified atrial fibrillation; E78.5 Hyperlipidemia, unspecified; K21.9 Gastro-esophageal reflux disease without esophagitis; H40.9 Unspecified glaucoma; Z79.4 Long term (current) use of insulin; Z79.82 Long term (current) use of aspirin; Z79.02 Long term (current) use of antithrombotics/antiplatelets; Z79.899 Other long term (current) drug therapy; Z88.8 Allergy status to other drugs, medicaments and biological substances; Z88.2 Allergy status to sulfonamides; Z85.3 Personal history of malignant neoplasm of breast; Z91.81 History of falling; Z90.710 Acquired absence of both cervix and uterus
CPT/HCPCS: 0042T; 36415; 36416; 70450; 70496; 70498; 70551; 80053; 80061; 82550; 83036; 84484; 85025; 85576; 85610; 85730; 93005; 94760; 96372; G0378; J1650; J1815; J7050; Q9967

== ENCOUNTER 2023-09-11 | Inpatient (IN) | payer MEDICARE | END 2023-09-15 11:45 | disposition home or self-care (01) | DRG 605 | PROVIDERS: ADMIT Surgery | PROC: 30233N1 Transfusion of Nonautologous Red Blood Cells into Peripheral Vein, Percutaneous Approach (ICD-10-PCS; principal; 2023-09-13) | DX: S30.1XXA Contusion of abdominal wall, initial encounter (principal); D62 Acute posthemorrhagic anemia; W18.30XA Fall on same level, unspecified, initial encounter; N18.9 Chronic kidney disease, unspecified; I12.9 Hypertensive chronic kidney disease with stage 1 through stage 4 chronic kidney disease, or unspecified chronic kidney disease; Z88.2 Allergy status to sulfonamides; Z88.1 Allergy status to other antibiotic agents; Z88.5 Allergy status to narcotic agent; Z79.899 Other long term (current) drug therapy; Z79.01 Long term (current) use of anticoagulants; E11.22 Type 2 diabetes mellitus with diabetic chronic kidney disease; E78.5 Hyperlipidemia, unspecified; Z98.51 Tubal ligation status; Z98.49 Cataract extraction status, unspecified eye; F39 Unspecified mood [affective] disorder; K21.9 Gastro-esophageal reflux disease without esophagitis; H40.9 Unspecified glaucoma; Z90.49 Acquired absence of other specified parts of digestive tract; Z90.710 Acquired absence of both cervix and uterus; Z86.73 Personal history of transient ischemic attack (TIA), and cerebral infarction without residual deficits; F41.9 Anxiety disorder, unspecified; Z79.4 Long term (current) use of insulin ==

== ENCOUNTER 2024-01-27 13:10 | Outpatient (CLI) | payer MEDICARE | END 2024-01-27 13:11 | disposition home or self-care (01) | LOC: BICMAMMO 13:10 | PROVIDERS: ATTEND Specialist | DX: Z08 Encounter for follow-up examination after completed treatment for malignant neoplasm (principal); Z85.3 Personal history of malignant neoplasm of breast | CPT/HCPCS: 77066; G0279 ==

== ENCOUNTER 2024-07-14 17:43 | Observation (INO) | payer MEDICARE ==
[2024-07-14 18:35] VITALS: BMI 20.5
[2024-07-14] MEDS ORDERED: Glucagon 1 MG/ML KIT IM PRN (19:14)
[2024-07-14] MEDS ORDERED: Acetaminophen 325 MG TAB PO PRN (19:14)
[2024-07-14] MEDS ORDERED: Dextrose 50% Abboject 50 ML SYRINGE SLOW IVP PRN (19:14)
[2024-07-14] MEDS ORDERED: Dextrose 5% in Water 1,000 ML IV PRN (19:14)
[2024-07-14] MEDS ORDERED: Insulin Lispro 100 UNIT/ML 10 ML VIAL SC PRN (19:16)
[2024-07-14] MEDS ORDERED: hydrALAZINE 20 MG/ML VIAL SLOW IVP PRN (19:16)
[2024-07-14 20:10] LABS: Hemoglobin A1c 7.2 % (4.0-6.0)
[2024-07-14 20:15] LABS: Cardiac Risk 3.1 (Less than 4.5)
[2024-07-14] MEDS ORDERED: Nebivolol HCl 5 MG TAB PO PRN ×2 (21:19→21:23)
[2024-07-14] MEDS: Pantoprazole 40 MG DR.TAB PO SCH (22:37)
[2024-07-14] MEDS: Ranolazine ER 500 MG TAB PO SCH (22:37)
[2024-07-14] MEDS: Insulin Glargine 30 UNITS/0.3 ML VIAL SC SCH (22:37)
[2024-07-14] MEDS: Apixaban 2.5 MG TAB PO SCH (22:37)
[2024-07-15 04:28] LABS: #Basophils Less than 0.03 10x3/uL (0.0-0.2); %Basophils 0.4 % (0.0-1.0); %Eosinophils 6.1 % (0.0-10.0); %Lymphocytes 24.1 % (21.0-51.0); %Monocytes 9.1 % (0.0-10.0); %Neutrophils 59.9 % (42.0-75.0); Hematocrit 36.2 % (36.0-47.0); Mean Corpuscular HGB CONC 33.1 g/dL (32.0-36.0); Mean Corpuscular Hemoglobin 29.1 pg (27.0-31.0); Mean Corpuscular Volume 87.9 fL (78.0-98.0); Mean Platelet Volume 10.1 fL (7.4-10.4); Platelet Count 180 10x3/uL (130-400); RBC Distribution Width 13.5 % (11.5-14.5); Red Blood Cell (RBC) Count 4.12 mill/uL (4.20-5.40)
[2024-07-15 04:43] LABS: Anion Gap 13 mmol/L (10-20); BUN (Urea Nitrogen) 11 mg/dL (9.8-20.1); Calc. Creatinine Clearance 41 mL/min (70-130); Calcium 8.9 mg/dL (7.8-10.44); Carbon Dioxide 23 mmol/L (23-31); Chloride 105 mmol/L (98-107); Estimated GFR 67; Glucose 158 mg/dL (83-110); Potassium 3.4 mmol/L (3.5-5.1); Sodium 138 mmol/L (136-145)
[2024-07-15] MEDS: Ranolazine ER 500 MG TAB PO SCH (08:58)
[2024-07-15] MEDS: Aspirin 81 mg Enteric Coated Tablet PO SCH (08:58)
[2024-07-15] MEDS: Atorvastatin Calcium 40 MG TAB PO SCH (08:58)
[2024-07-15] MEDS: Sertraline 25 MG TAB PO SCH (08:58)
[2024-07-15] MEDS: Apixaban 2.5 MG TAB PO SCH (08:59)
[2024-07-15] MEDS: Amlodipine 10 MG TAB PO SCH (08:59)
[2024-07-15] MEDS: Potassium Chloride 20 MEQ TAB PO SCH (09:05)
[2024-07-15 13:05] VITALS: TEMP 97.9
[2024-07-15 14:15] VITALS: BP 130/58
[2024-07-15] MEDS ORDERED: Insulin Glargine 30 UNITS/0.3 ML VIAL SC SCH (21:00)
[2024-07-15] MEDS ORDERED: Pantoprazole 40 MG DR.TAB PO SCH (21:00)
== END 2024-07-15 15:12 | disposition home or self-care (01) ==
LOC: 2SE 17:43
PROVIDERS: ADMIT Family Medicine; ATTEND Family Medicine
DX: R20.0 Anesthesia of skin (principal); I12.9 Hypertensive chronic kidney disease with stage 1 through stage 4 chronic kidney disease, or unspecified chronic kidney disease; N18.9 Chronic kidney disease, unspecified; E11.22 Type 2 diabetes mellitus with diabetic chronic kidney disease; E78.5 Hyperlipidemia, unspecified; F39 Unspecified mood [affective] disorder; Z90.710 Acquired absence of both cervix and uterus; Z90.49 Acquired absence of other specified parts of digestive tract; Z87.891 Personal history of nicotine dependence; Z85.828 Personal history of other malignant neoplasm of skin; Z98.51 Tubal ligation status; Z88.5 Allergy status to narcotic agent; Z88.2 Allergy status to sulfonamides; Z88.1 Allergy status to other antibiotic agents; Z79.01 Long term (current) use of anticoagulants; Z79.82 Long term (current) use of aspirin; Z79.4 Long term (current) use of insulin; Z79.899 Other long term (current) drug therapy
CPT/HCPCS: 70551; 80048; 80061; 82962 ×2; 83036; 84443; 85025; 97535; G0378 ×2; 36415; 36416; J1815